=== PATIENT | female | born 1975 | race Hispanic/Latino ===

== ENCOUNTER 2017-08-01 00:42 | Emergency (ER) | payer BC ==
[2017-08-01 01:17] LABS: #Eosinphils 0.1 thou/uL (0.0-0.7); #Lymphocytes 2.2 thou/uL (1.20-3.40); #Monocytes 1.4 thou/uL (0.11-0.59); #Neutrophils 11.7 thou/uL (1.40-6.50); %Basophils 0.3 % (0.0-1.0); %Eosinophils 0.6 % (0.0-10.0); %Monocytes 9.1 % (0.0-10.0); Hemoglobin 15.8 g/dL (12.0-16.0); Mean Corpuscular HGB CONC 33.9 g/dL (32.0-36.0); Mean Corpuscular Hemoglobin 31.2 pg (27.0-31.0); Mean Corpuscular Volume 92.1 fl (81.0-99.0); Mean Platelet Volume 7.6 fL (7.4-10.4); Platelet Count 187 thou/uL (130-400); RBC Distribution Width 14.1 % (11.5-14.5); Red Blood Cell (RBC) Count 5.06 mill/uL (4.20-5.40); White Blood Cell (WBC) Count 15.4 thou/uL (4.8-10.8)
[2017-08-01 01:40] LABS: ALT (SGPT) 33 U/L (8-55); Alkaline Phosphatase 95 U/L (40-150); Anion Gap 16 mmol/L (10-20); BUN (Urea Nitrogen) 15 mg/dL (7.0-18.7); Bilirubin, Total 0.5 mg/dL (0.2-1.2); Calc. Creatinine Clearance 0 mL/min (70-130); Calcium 10.3 mg/dL (7.8-10.44); Carbon Dioxide 24 mmol/L (22-29); Chloride 101 mmol/L (98-107); Estimated GFR-MDRD 77; Globulin 3.6 g/dL (2.4-3.5); Glucose 143 mg/dL (70-105); Potassium 4.2 mmol/L (3.5-5.1); Protein, Total 7.6 g/dL (6.0-8.3); Sodium 137 mmol/L (136-145)
[2017-08-01 01:46] LABS: CKMB 0.5 ng/mL (0-6.6)
[2017-08-01 02:14] LABS: AST (SGOT) 13 U/L (5-34)
[2017-08-01 02:21] LABS: Bilirubin Negative (Negative); Blood, Urine Moderate (Negative); Clarity CLOUDY (Clear); Glucose, Urine (Dipstick) Negative (Negative); Leukocyte Moderate (Negative); Nitrite Positive (Negative); Protein, Urine (Dipstick) 30 mg/dL (Neg-Trace); Specific Gravity, Urine 1.022 (1.002-1.036); pH, Urine 6.5 (5.0-9.0)
[2017-08-01 02:23] LABS: Bacteria/HPF 4+ HPF (None Seen); Hyaline Casts/LPF 7-10 HYALINE CAST LPF (0-3 Hyaline); Squamous Epithelial 0-3 HPF (0-3)
[2017-08-01] MEDS ORDERED: Ibuprofen 800 MG TAB ONE (03:05)
--- NOTE | 2017-08-01 08:09 | RAD ---
2 VIEW CHEST SERIES: Date: 08/01/17 INDICATION: Chest pain. FINDINGS: There is no consolidation, effusion, or pneumothorax. Cardiac silhouette is within normal limits of s ize. No acute osseous findings are seen. Metallic clips overlying the right axilla and right upper ab domen. IMPRESSION: No focal consolidation. POS: [facility]
== END 2017-08-01 03:13 | disposition home or self-care (01) ==
LOC: ERS 00:42
DX: F41.9 Anxiety disorder, unspecified (principal); N39.0 Urinary tract infection, site not specified; I10 Essential (primary) hypertension; Z87.891 Personal history of nicotine dependence; Z79.899 Other long term (current) drug therapy
CPT/HCPCS: 36415; 71046; 80053; 81003; 81015; 82553; 84484; 85025; 93005

== ENCOUNTER 2018-02-28 15:36 | Outpatient (CLI) | payer BC | END 2018-02-28 15:37 | disposition home or self-care (01) | LOC: BICMAMMO 15:36 | PROVIDERS: ATTEND Internal Medicine | DX: Z12.31 Encounter for screening mammogram for malignant neoplasm of breast (principal) | CPT/HCPCS: 77063; 77067 ==

== ENCOUNTER 2018-08-09 08:18 | Emergency (ER) | payer BC ==
[2018-08-09 09:09] LABS: #Eosinphils 0.1 thou/uL (0.0-0.7); #Lymphocytes 1.2 thou/uL (1.20-3.40); #Monocytes 0.6 thou/uL (0.11-0.59); #Neutrophils 8.5 thou/uL (1.40-6.50); %Basophils 0.3 % (0.0-1.0); %Eosinophils 0.8 % (0.0-10.0); %Lymphocytes 11.5 % (21.0-51.0); %Monocytes 5.6 % (0.0-10.0); %Neutrophils 81.8 % (42.0-75.0); Hemoglobin 15.9 g/dL (12.0-16.0); Mean Corpuscular HGB CONC 32.9 g/dL (32.0-36.0); Mean Corpuscular Volume 94.2 fL (78.0-98.0); Mean Platelet Volume 8.6 fL (7.4-10.4); Platelet Count 168 thou/uL (130-400); Red Blood Cell (RBC) Count 5.12 mill/uL (4.20-5.40); White Blood Cell (WBC) Count 10.4 thou/uL (4.8-10.8)
[2018-08-09] MEDS ORDERED: Iopamidol 370 76% 100 ML VIAL ONE (09:29)
[2018-08-09 09:42] LABS: ALT (SGPT) 29 U/L (8-55); AST (SGOT) 29 U/L (5-34); Albumin 3.8 g/dL (3.5-5.0); Alkaline Phosphatase 97 U/L (40-150); Anion Gap 17 mmol/L (10-20); BUN (Urea Nitrogen) 17 mg/dL (7.0-18.7); Bilirubin, Total 0.4 mg/dL (0.2-1.2); Calc. Creatinine Clearance 0 mL/min (70-130); Calcium 9.2 mg/dL (7.8-10.44); Carbon Dioxide 20 mmol/L (22-29); Chloride 104 mmol/L (98-107); Estimated GFR-MDRD 83; Globulin 3.2 g/dL (2.4-3.5); Glucose 188 mg/dL (70-105); Potassium 5.1 mmol/L (3.5-5.1); Sodium 136 mmol/L (136-145)
--- NOTE | 2018-08-09 09:50 | RAD ---
TWO VIEWS CHEST: DATE: 08/09/2018. PROVIDED CLINICAL HISTORY: Chest pain. FINDINGS: Comparison 08/01/2017. Cardiac and mediastinal silhouette is within normal limits. Left subclavian ca rdiac pacing device is now present with lead tips overlying expected locations of RA, RV, and coronar y sinus. The frontal view is suboptimally exposed. Given this limitation, no focal consolidation, p leural fluid, or pneumothorax apparent. IMPRESSION: No definite evidence for an acute cardiopulmonary process with limitations as above. POS: [facility]
[2018-08-09] MEDS ORDERED: Ondansetron PF 4 MG/2 ML Vial ONE (10:02)
[2018-08-09 10:47] LABS: Bilirubin Small (Negative); Blood, Urine Trace (Negative); Clarity CLEAR (Clear); Glucose, Urine (Dipstick) 250 mg/dL (Negative); Leukocyte Small (Negative); Nitrite Negative (Negative); Protein, Urine (Dipstick) 30 mg/dL (Neg-Trace); Specific Gravity, Urine 1.042 (1.002-1.036); pH, Urine 5.5 (5.0-9.0)
[2018-08-09 10:50] LABS: Bacteria/HPF None Seen HPF (None Seen); Hyaline Casts/LPF 4-6 HYALINE CAST LPF (0-3 Hyaline)
--- NOTE | 2018-08-09 10:54 | CT ---
CT PULMONARY ANGIOGRAM WITH IV CONTRAST AND 3D POSTPROCESSING: HISTORY: Dyspnea. FINDINGS: There is good contrast opacification of the pulmonary arterial vasculature without filling defects to suggest pulmonary embolism. The thoracic aorta is well opacified without aneurysm or dissection. N o pleural or pericardial effusions are seen. There are tiny tracheal diverticula arising at the 6-7 o'clock positions of the upper thoracic trachea. No pneumothoraces, focal areas of consolidation, pu lmonary nodules, or lung masses are identified. No acute osseous abnormalities are seen. There are mild degenerative changes in the spine. Upper abdominal tomograms demonstrate changes of cholecystec adrian and fatty infiltration of the liver. IMPRESSION: No CT evidence of pulmonary embolism. POS: [facility]
[2018-08-10 10:04] LABS: Hemoglobin A1c 8.5 % (4.0-6.0)
--- NOTE | 2018-08-12 12:03 | EKG ---
Test Reason : Blood Pressure : / mmHG Vent. Rate : 118 BPM Atrial Rate : 119 BPM P-R Int : 122 ms QRS Dur : 120 ms QT Int : 384 ms P-R-T Axes : 027 016 077 degrees QTc Int : 538 ms Electronic ventricular pacemaker Confirmed by SHARLA JACKSON DO ([id number]), newspaper editor managing TREMAINE CHAO ([id number]) on 08/12/2018 12:02:46 PM Referred By: Confirmed By:SHARLA JACKSON DO
== END 2018-08-09 11:41 | disposition home or self-care (01) ==
LOC: ERS 08:18
DX: I11.0 Hypertensive heart disease with heart failure (principal); I50.9 Heart failure, unspecified; E11.9 Type 2 diabetes mellitus without complications; Z79.899 Other long term (current) drug therapy; Z79.84 Long term (current) use of oral hypoglycemic drugs
CPT/HCPCS: 71046; 71275; 80053; 81003; 81015; 83036; 84484; 85025; 85379; 87086; 93005; 96374; J2405; Q9967

== ENCOUNTER 2018-09-30 17:42 | Inpatient (IN) | payer BC ==
[~2018-09-30 17:42] MED LIST: Glycopyrrolate 0.2 MG/ML 5 ML SYRINGE ONE; Lidocaine 1% PF 5 ML VIAL ONE; Ondansetron PF 4 MG/2 ML Vial ONE; PHENYLEPHRINE-NS 100 MCG/ML 10 ML SYRINGE ONE; PROPOFOL 200 MG/20 ML VIAL ONE; Rocuronium Bromide 10 MG/ML (10ML VIAL) ONE; Succinylcholine Chloride 20 MG/ML 10 ml SYRINGE FS ONE
[2018-09-30 19:30] LABS: Bilirubin Negative (Negative); Blood, Urine Large (Negative); Clarity TURBID (Clear); Glucose, Urine (Dipstick) >=1000 mg/dL (Negative); Leukocyte Moderate (Negative); Nitrite Positive (Negative); Protein, Urine (Dipstick) 100 mg/dL (Neg-Trace); Specific Gravity, Urine 1.028 (1.002-1.036); Urobilinogen 0.2 mg/dL (0.2-1.0)
[2018-09-30 19:31] LABS: Pregnancy Test - Urine (BHCG) Negative (Negative); Pregu Control Background? CLEAR/WHITE (CLR/WHITE); Pregu Control Bar Appear? YES (CONTROL BAR); Specific Gravity 1.028 (1.002-1.036)
[2018-09-30 19:33] LABS: Bacteria/HPF 4+ HPF (None Seen); Squamous Epithelial 21-50 HPF (0-3)
[2018-09-30 19:38] LABS: Pathc Cast-AUWi Flag 3.37 (0-2.49); Yeast-AUWi Flag 717.6 (0-25.0)
[2018-09-30 19:40] LABS: Hyaline Casts/LPF NONE SEEN LPF (0-3 Hyaline); Other Casts/LPF None Seen LPF (0-3 Hyaline); Yeast-All Forms None Seen HPF (None Seen)
[2018-09-30] MEDS ORDERED: Acetaminophen 500 MG TAB ONE (20:20)
[2018-09-30 20:48] LABS: Band 19 % (5-11); Eosinophils 2 % (0-10); Hemoglobin 15.1 g/dL (12.0-16.0); Lymphocytes 11 % (21-51); MDiff Complete? YES; Mean Corpuscular HGB CONC 33.4 g/dL (32.0-36.0); Mean Corpuscular Hemoglobin 32.2 pg (27.0-31.0); Mean Corpuscular Volume 96.2 fL (78.0-98.0); Mean Platelet Volume 8.6 fL (7.4-10.4); Monocytes 2 % (0-10); Neutrophil 66 % (42-75); Platelet Count 141 thou/uL (130-400); Platelet Morphology Comment Appears Adequate; RBC Distribution Width 13.5 % (11.5-14.5); Red Blood Cell (RBC) Count 4.68 mill/uL (4.20-5.40); White Blood Cell (WBC) Count 18.3 thou/uL (4.8-10.8)
[2018-09-30 20:59] LABS: ALT (SGPT) 26 U/L (8-55); AST (SGOT) 21 U/L (5-34); Albumin 3.8 g/dL (3.5-5.0); Alkaline Phosphatase 120 U/L (40-150); Anion Gap 18 mmol/L (10-20); BUN (Urea Nitrogen) 12 mg/dL (7.0-18.7); Bilirubin, Total 0.6 mg/dL (0.2-1.2); Calc. Creatinine Clearance 0 mL/min (70-130); Calcium 9.9 mg/dL (7.8-10.44); Carbon Dioxide 22 mmol/L (22-29); Chloride 99 mmol/L (98-107); Estimated GFR-MDRD 50; Globulin 3.3 g/dL (2.4-3.5); Glucose 522 mg/dL (70-105); Protein, Total 7.1 g/dL (6.0-8.3)
[2018-09-30 21:01] LABS: Sodium 135 mmol/L (136-145)
[2018-09-30] MEDS ORDERED: cefTRIAXone\\ROCEPHIN 1 GM VIAL ONE ×2 (21:22→22:40)
[2018-09-30] MEDS ORDERED: Sodium Chloride 0.9% 100 ML ONE ×2 (21:22→22:40)
[2018-09-30] MEDS ORDERED: Insulin Regular 300 UNITS/3 ML VIAL ONE (21:28)
--- NOTE | 2018-09-30 21:35 | CT ---
CT of abdomen and pelvis: 09/30/2018 COMPARISON: 11/13/2016 HISTORY: Dysuria, back pain TECHNIQUE: Axial CT imaging at 5 mm intervals from lung bases through pubic symphysis without contras t. Coronal reformatted imaging obtained. FINDINGS: Lack of contrast media limits assessment of the viscera, bowel, vascular structures, and fo r lymphadenopathy. The visualized lung bases are unremarkable. Transvenous AICD present. Clips in the gallbladder fossa consistent with prior cholecystectomy noted. No free intraperitoneal air. The hepatic parenchyma is diffusely hypodense, evidence of steatosis. The spleen, pancreas, and adren al glands are unremarkable. Subcentimeter nonobstructing stone noted in the midpole and lower pole left kidney, measuring approxi mately 4 and 2 mm respectively. No evidence for obstructive uropathy is seen on the left. There is an obstructing proximal right ureteral stone measuring 7-8 mm in craniocaudal dimension with irregular anterior margins. There is mild associated right hydronephrosis. There is diverticulosis of the descending colon with no evidence for diverticulitis. Appendix appears unremarkable. The osseous structures demonstrate no lytic or blastic lesions. IMPRESSION: Obstructing proximal right ureteral calculus. Nonobstructing intrarenal calculi noted on the left.
[2018-09-30] MEDS ORDERED: Fentanyl 100 MCG/2 ML VIAL ONE (22:37)
[2018-09-30] MEDS ORDERED: Ketorolac Tromethamine 30 MG/ML VIAL ONE (22:40)
[2018-09-30] MEDS ORDERED: Iothalamate Meglumine 60% 50 ML VIAL FS ONE (22:45)
[2018-09-30] MEDS ORDERED: Ketamine 50 MG/ML (10ML VIAL) ONE (22:57)
--- NOTE | 2018-09-30 23:57 | RAD ---
Retrograde pyelogram 09/30/2018 COMPARISON: None HISTORY: Stent placement, pain, proximal right ureteral stone FINDINGS: Images demonstrate placement of a double-J ureteral stone on the right. The calculus noted within the proximal right ureter on recent CT is faintly visualized on the first image and is not seen on the subsequent images. IMPRESSION: Retrograde pyelogram as above.
[2018-10-01] MEDS ORDERED: SUGAMMADEX SODIUM 200 MG/2 ML VIAL ONE (00:05)
--- NOTE | 2018-10-01 00:17 | CON ---
DATE OF CONSULTATION: 09/30/2018 REASON FOR CONSULTATION: Right flank pain, urinary tract infection. HISTORY OF PRESENT ILLNESS: Ms. Helms is a 43-year-old female with a history of kidney stones in the past. She has had prior intervention by Dr. Meadows. She presents now with acute onset of right-sided flank pain. She also has had dysuria. In the emergency room, she was evaluated and noted to have an elevated white count of 18.3. Urinalysis demonstrated 4+ bacteria with too numerous to count white blood cells. In the emergency room, she was also noted to have a blood sugar of 522. CT scan demonstrates a proximal right ureteral stone with proximal hydroureter. PAST MEDICAL HISTORY: Cardiac disease, status post defibrillator implantation; diabetes mellitus. PAST SURGICAL HISTORY: x3, cholecystectomy, hernia repair, ESWL. ALLERGIES: SULFA. MEDICATIONS AT HOME: Please see chart. REVIEW OF SYSTEMS: RESPIRATORY: No shortness of breath. CARDIOVASCULAR: Denies chest pain or palpitation, although she does have a defibrillator. GENITOURINARY: Please see history of present illness. NEUROLOGIC: Denies any stroke symptoms. GASTROINTESTINAL: Denies chronic constipation or diarrhea. PHYSICAL EXAMINATION: GENERAL: She is awake. She is alert. She is in no distress at this time. VITAL SIGNS: Temperature 98.3, blood pressure 125/83, pulse 78, respiratory rate 20. HEENT: Normocephalic, atraumatic. NECK: Supple. No masses. CHEST: Clear to auscultation. CARDIOVASCULAR: Regular rate and rhythm. ABDOMEN: Soft, nontender. No palpable masses. Liver and spleen not palpable. No abdominal tenderness. LABORATORY DATA: Creatinine 1.2, glucose 522, potassium 4.0. White count 18.3, hemoglobin 15.1, hematocrit 45.1. CT scan; 7 to 8 mm proximal right ureteral stone. IMPRESSION: Ms. Helms is a 43-year-old female with a prior history of stone disease. She now has an upper ureteral stone with evidence of obstruction. In addition, she has findings consistent with urinary tract infection that included a urinalysis [place] [id number]. I have recommended cystoscopy with ureteral stent placement. She is on IV antibiotics and urine culture has been sent. The procedure, potential limitation, alternatives, and complications have been discussed with her. She does wish to proceed. RECOMMENDATIONS: Cystoscopy, right ureteral stent placement. Job ID: [id number]
[2018-10-01] MEDS ORDERED: Sodium Chloride 0.9% 1,000 ML IV SCH (00:33)
[2018-10-01] MEDS: HYDROcodone/Acetaminophen 7.5/325 mg Tablet PO PRN ×3 (01:33→17:28)
--- NOTE | 2018-10-01 02:12 | OP ---
DATE OF PROCEDURE: 10/01/2018 PREOPERATIVE DIAGNOSES: Right ureteral stone and urinary tract infection. POSTOPERATIVE DIAGNOSES: Right ureteral stone and urinary tract infection. PROCEDURES PERFORMED: Cystoscopy, right ureteral stent placement, and retrograde pyelogram. ANESTHESIA: General. INDICATIONS: Ms. Sharonda Helms is a 43-year-old female with a history of stone disease in the past. She now has right-sided flank pain and urine consistent with urinary tract infection. Right ureteral stone noted on CT scan with evidence of obstruction. She presents to the operating room for cystoscopy and stent placement. DESCRIPTION OF PROCEDURE: The patient was given general anesthesia and IV antibiotics. She was sterilely prepped and draped in the lithotomy position. Cystoscope was passed into the bladder. Bladder was examined in its entirety. There were no mucosal lesions seen. She does have a large cystocele. Right ureteral orifice was intubated with a floppy tip guidewire, which was passed cephalad under fluoroscopic control. A Pollack catheter was passed over the guidewire, and a retrograde pyelogram was performed demonstrating the renal collecting system. A Glidewire was passed through the Pollack and then, a 4.8 x 24 double-J stent was coiled in the right renal pelvis and in the bladder as determined fluoroscopically and cystoscopically. The string was cut. It should be noted that the stone was not easily seen on the fluoroscopic imaging. The bladder was drained, and the cystoscope was removed. The patient was transferred from the operating room to recovery room in stable condition. COMPLICATION: None. ESTIMATED BLOOD LOSS: Minimal. Job ID: [id number]
[2018-10-01] MEDS ORDERED: Dextrose 50% Abboject 50 ML SYRINGE SLOW IVP PRN (02:55)
[2018-10-01] MEDS ORDERED: Dextrose 5% in Water 1,000 ML IV PRN (02:55)
[2018-10-01] MEDS ORDERED: Ondansetron ODT 4 MG TAB PO PRN (03:02)
[2018-10-01] MEDS ORDERED: Vancomycin HCl 1.5 GM in Sodium Chloride 0.9% 250 ML 300 ML IVPB SCH (03:30)
[2018-10-01 04:00] LABS: ALT (SGPT) 25 U/L (8-55); AST (SGOT) 19 U/L (5-34); Albumin 3.4 g/dL (3.5-5.0); Alkaline Phosphatase 88 U/L (40-150); Anion Gap 16 mmol/L (10-20); BUN (Urea Nitrogen) 12 mg/dL (7.0-18.7); Bilirubin, Total 0.5 mg/dL (0.2-1.2); CK (CPK) 17 U/L (29-168); Calc. Creatinine Clearance 109 mL/min (70-130); Carbon Dioxide 23 mmol/L (22-29); Chloride 104 mmol/L (98-107); Estimated GFR-MDRD 78; Globulin 2.9 g/dL (2.4-3.5); Glucose 348 mg/dL (70-105); Potassium 3.8 mmol/L (3.5-5.1); Protein, Total 6.3 g/dL (6.0-8.3); Sodium 139 mmol/L (136-145)
[2018-10-01] MEDS ORDERED: Vancomycin HCl 1.25 GM in Sodium Chloride 0.9% 250 ML 250 ML IVPB SCH (04:00)
[2018-10-01 04:02] LABS: Band 14 % (5-11); Eosinophils 1 % (0-10); Hemoglobin 13.6 g/dL (12.0-16.0); Lymphocytes 3 % (21-51); MDiff Complete? YES; Mean Corpuscular HGB CONC 32.9 g/dL (32.0-36.0); Mean Corpuscular Hemoglobin 31.7 pg (27.0-31.0); Mean Corpuscular Volume 96.3 fL (78.0-98.0); Mean Platelet Volume 8.3 fL (7.4-10.4); Monocytes 7 % (0-10); Neutrophil 75 % (42-75); Platelet Count 104 thou/uL (130-400); Platelet Morphology Comment Appears Decreased; RBC Distribution Width 13.6 % (11.5-14.5); Red Blood Cell (RBC) Count 4.29 mill/uL (4.20-5.40); White Blood Cell (WBC) Count 14.6 thou/uL (4.8-10.8)
[2018-10-01] MEDS ORDERED: Calcium Carbonate 500 MG ChewTAB PO PRN (04:11)
[2018-10-01] MEDS: HumaLOG 300 UNITS/3 ML VIAL SC PRN ×5 (04:15→20:37)
[2018-10-01] MEDS: Acetaminophen 325 MG TAB PO PRN (04:18)
--- NOTE | 2018-10-01 04:43 | HP ---
This is RUBENS Patterson dictating a report for Elaina Saez MD. CHIEF COMPLAINT: UTI and back pain. HISTORY OF PRESENT ILLNESS: Mrs. Helms is a very pleasant 43-year-old woman, who has a known history of kidney stone and recurrent urinary tract infections, who presented to the emergency department with complaints of UTI. The patient states she has noticed dysuria and urinary frequency for the last 3 weeks that progressively worsened. Approximately one week ago, she began to experience vaginal itching. The patient states these are similar symptoms that occur when she has issues with her kidney stones. She has had four kidney stones removed in the past requiring admission. The last one required a stent placement. However, the stent became dislodged shortly after the procedure. It came out in her urine. The patient was seen in the ED, underwent laboratory studies that were notable for leukocytosis with an elevated white count of 18. Creatinine slightly elevated 1.20; GFR 50, decreased from baseline of 83. Urinalysis was done and leukocyte esterase was noted in the urine as well as greater than 1000 glucose, negative for ketones, 100 of protein, positive nitrites, 7 to 10 red blood cells, greater than 50 white blood cells, and 4+bacteria. Patient states she was to be discharged on antibiotics in anticipation of she likely had a stone as she has experienced similar symptoms in the past. The patient was therefore taken for a CT of the abdomen and pelvis and noted to have an obstructing proximal right ureteral calculus with nonobstructing intrarenal calculi on the left side. The obstructing stone measured 7 to 8 mm with some mild associated right hydronephrosis. The patient was given ceftriaxone while in the ED. Vancomycin and gentamicin also ordered, but not yet given. The patient is taken for procedure by Dr. York. She underwent a cystoscopy with right ureteral stent placement and retrograde pyelogram. Patient is now back in the room following the procedure. States she is feeling well with minimal discomfort. Denies any complaints at present. Denies having any nausea or vomiting. No chest pain, palpitations, or shortness of breath. No headaches or dizziness. Has urinated and noted some hematuria but no dysuria. All other review of systems negative. PAST MEDICAL HISTORY: 1. Diabetes mellitus. 2. Cardiac disease, status post defibrillator. 3. Hypertension. PAST SURGICAL HISTORY: 1. x3. 2. Cholecystectomy. 3. Hernia repair. 4. ESWL. 5. Right-sided ureteral stent placement. SOCIAL HISTORY: The patient denies any alcohol use, drug use, or tobacco use. ALLERGIES: SULFA CAUSES RASH. CURRENT MEDICATIONS: 1. Carvedilol. 2. Lisinopril. 3. Metformin. 4. Spironolactone. 5. Magnesium. 6. . 7. Macrobid. 8. Xanax. 9. . 10. Tradjenta. 11. Lumigan. 12. Zolpidem. 13. Cartia XT. PHYSICAL EXAMINATION: GENERAL: Patient is obese, well developed, in no acute distress. VITAL SIGNS: Temperature 98.4, pulse 74, respirations 16, O2 saturation 96% on room air, and blood pressure 131/83. HEENT: Normocephalic and atraumatic. Pupils are equal, round, and reactive to light. Sclerae without icterus. Oropharynx is clear. NECK: Supple. Full range of motion. LUNGS: Clear to auscultation bilaterally. CARDIAC: Regular rate and rhythm. ABDOMEN: Soft, nondistended, and obese. Mild discomfort with palpation on the right side. No guarding or rigidity. EXTREMITIES: No lower leg edema or swelling. Mechanical SCDs in place. SKIN: Without rash or jaundice. NEUROLOGIC: Alert and oriented x3. No neuro deficits. LABORATORY DATA: Imaging as mentioned above in HPI. White blood count 18.3, hematocrit 45.1, and hemoglobin 15.1. Sodium 135, potassium 4.0, chloride 99, carbon dioxide 22, anion gap 18, BUN 12, creatinine 1.20, GFR 50, glucose 522, calcium 9.9, total bilirubin 0.6, AST 21, ALT 26, alkaline phosphatase 120, serum protein 7.1, and albumin 3.8. Urinalysis as mentioned above. IMPRESSION AND PLAN: Ms. Hlems is a very pleasant 43-year-old woman who is being admitted for management of the following. 1. Obstructing right renal calculi. The patient is status post right ureteral stent placement done by Dr. York. Currently on IV fluids. Denies any significant pain at present. Has noted some mild hematuria to be expected following the procedure. She is feeling well overall. 2. Pyelonephritis. Patient was started on IV antibiotics including Rocephin. Gentamicin and vancomycin were also ordered while in the ED. However, it appears these have not yet been given. Her white count was elevated at 18.3. No lactate available. Therefore, we will obtain lactate and other morning labs are due. We will also obtain CK. We will continue IV antibiotics. 3. Diabetes mellitus. We will resume home medications if renal function okay with these morning labs. In the meantime, we will initiate insulin sliding scale. Monitor glucose. Ketones added on with the morning labs. 4. Hypertension. Monitor blood pressure. Resume home medications. 5. Cardiac disease. Patient reports having a defibrillator placed for "weak heart." She last underwent an echocardiogram in 2017 with no ejection fraction calculated. She was noted to have hypokinetic inferior wall with mildly reduced LV function and mild mitral regurgitation as well as mild dilated left atrium. She is on Coreg which we will resume. 6. Gastrointestinal prophylaxis. 7. Deep venous thrombosis prophylaxis with mechanical SCDs. Patient has also been placed on enoxaparin. 8. Full code status. Surrogate decision maker is her , Bola Helms. Patient's case to be discussed with Dr. Saez for further recommendations. Job ID: [id number]
[2018-10-01] MEDS ORDERED: Nitroglycerin 2% Ointment 1 INCH/1 GM Packet ONE (05:29)
[2018-10-01] MEDS ORDERED: Furosemide 40 MG/4 ML VIAL ONE (05:33)
[2018-10-01] MEDS ORDERED: Labetalol HCl 100 MG/20 ML VIAL ONE (05:36)
[2018-10-01] MEDS ORDERED: cloNIDine 0.1 MG TAB PO PRN (05:45)
[2018-10-01] MEDS ORDERED: Labetalol HCl 100 MG/20 ML VIAL SLOW IVP PRN (05:45)
[2018-10-01] MEDS ORDERED: Nitroglycerin 2% Ointment 1 INCH/1 GM Packet TOP SCH (05:45)
[2018-10-01] MEDS ORDERED: Furosemide 20 MG/2 ML VIAL SLOW IVP SCH (06:00)
[2018-10-01 06:10] LABS: Phosphorus 3.4 mg/dL (2.3-4.7)
[2018-10-01 06:17] LABS: ALT (SGPT) 31 U/L (8-55); AST (SGOT) 25 U/L (5-34); Albumin 3.8 g/dL (3.5-5.0); Alkaline Phosphatase 105 U/L (40-150); Anion Gap 19 mmol/L (10-20); BUN (Urea Nitrogen) 12 mg/dL (7.0-18.7); Bilirubin, Total 0.6 mg/dL (0.2-1.2); Calc. Creatinine Clearance 104 mL/min (70-130); Calcium 9.4 mg/dL (7.8-10.44); Carbon Dioxide 19 mmol/L (22-29); Chloride 105 mmol/L (98-107); Estimated GFR-MDRD 74; Globulin 2.9 g/dL (2.4-3.5); Glucose 326 mg/dL (70-105); Magnesium 1.4 mg/dL (1.6-2.6); Potassium 3.9 mmol/L (3.5-5.1); Protein, Total 6.7 g/dL (6.0-8.3); Sodium 139 mmol/L (136-145)
[2018-10-01 06:21] LABS: Band 38 % (5-11); Elliptocytes SLIGHT = 2-5 cells (100X) (0-1/hpf); Hemoglobin 15.1 g/dL (12.0-16.0); Hypochromia SLIGHT = 6-15 cells (100X) (0-5/hpf); Lymphocytes 12 % (21-51); MDiff Complete? YES; Mean Corpuscular HGB CONC 32.9 g/dL (32.0-36.0); Mean Corpuscular Hemoglobin 31.7 pg (27.0-31.0); Mean Corpuscular Volume 96.3 fL (78.0-98.0); Mean Platelet Volume 8.8 fL (7.4-10.4); Metamyelocyte 1 % (0-0); Monocytes 1 % (0-10); Neutrophil 45 % (42-75); Platelet Count 111 thou/uL (130-400); Platelet Morphology Comment Appears Decreased; Polychromasia SLIGHT = 2-3 cells (100X) (0-2/hpf); RBC Distribution Width 13.6 % (11.5-14.5); Reactive Lymphocytes 3 % (0-10); Red Blood Cell (RBC) Count 4.76 mill/uL (4.20-5.40); White Blood Cell (WBC) Count 7.3 thou/uL (4.8-10.8)
[2018-10-01] MEDS: Sodium Chloride 0.9% 1,000 ML IV SCH ×2 (06:42→23:17)
[2018-10-01 07:56] LABS: Lactic Acid 3.9 mmol/L (0.5-2.2)
--- NOTE | 2018-10-01 09:26 | RAD ---
AP VIEW CHEST: HISTORY: Respiratory distress. FINDINGS: AP view chest is obtained on 10/01/2018. Comparison is made to a previous exam from 08/09/2018. A dual-lead intracardiac defibrillator is seen. Coronary sinus lead is also in place. Mild pulmonary vascular congestion seen. No evidence of effusions, pneumonia or pneumothorax seen. Right axillary surgical belkys in place. IMPRESSION: Mild pulmonary vascular congestion; otherwise, unremarkable AP view chest. Transcribed Date/Time: 10/01/2018 9:32 AM
[2018-10-01] MEDS: Carvedilol 25 MG TAB PO SCH ×2 (09:32→17:26)
[2018-10-01] MEDS: Enoxaparin Sodium 30 MG/0.3 ML SYRINGE SC SCH (09:32)
--- NOTE | 2018-10-01 10:58 | CON ---
DATE OF CONSULTATION: HISTORY OF PRESENT ILLNESS: This is a 43-year-old excessively obese female, who is 88 kg, presented to the ER with weakness, abdominal pain. She has known history of cardiomyopathy, has an AICD in place for about a year. 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 Her primary care doctor is Dr. France. She was admitted with a blood pressure of 119/71, respiratory rate 18, and temperature 98, saturations 97%. She was found to have back pain, UTI secondary to ureteral stone. Yesterday while she was being monitored, she became hypotensive and was transferred to the MICU, the reason for consult. This morning, she says she is feeling better, is still hypotensive. Denies any nausea, vomiting. Pain is somewhat better. She was started on broad-spectrum antibiotics, but appears so far, her cultures have been negative. PAST MEDICAL HISTORY: Diabetes, multiple ureteral calculi, E. coli bacteremia. PREVIOUS SURGERIES: Multiple stents placed previously, , cholecystectomy, AICD a year ago. MEDICATIONS: Chronic medications from home otherwise includes, 1. Diabetic medicine, metformin 1000 twice a day. 2. Spironolactone 25. 3. Entresto 1 twice a day. 4. Tradjenta 5. 5. Corlanor 5 mg twice a day. 6. Coreg twice a day. 7. Lipitor 10. ALLERGIES: SULFA. SOCIAL AND FAMILY HISTORY: Otherwise unremarkable. REVIEW OF SYSTEMS: A 10-point negative. PHYSICAL EXAMINATION: VITAL SIGNS: Blood pressure is 96/69, saturations are 100% room air, respiratory rate 18, pulse 80. CHEST: Decreased breath sounds. No wheezing. CARDIAC: Normal S1, S2. No gallops. ABDOMEN: No masses. LABORATORY DATA: White count 7000, H and H 15 and 45, platelet count is low 111. Lytes are normal. Glucose is elevated. She had an echo done recently, appears otherwise unremarkable. Abdomen and pelvis CT shows obstructive proximal right ureteral calculi. She is status post stent placed by Urology and a right ureteral stent placement. ASSESSMENT: 1. Urosepsis. 2. Cardiomyopathy. 3. Morbid obesity. 4. Sleep apnea. 5. Diabetes. 6. Hypotension. PLAN: It appears the patient is improved so far. We will continue broad-spectrum antibiotics and deescalate once we get cultures back. Continue supportive care, PT. She needs an outpatient sleep study. She may very well have sleep apnea. Pulmonary/Critical Care will follow while in the MICU. Job ID: [id number]
--- NOTE | 2018-10-01 16:55 | PRG ---
DATE OF SERVICE: 10/01/2018 SUBJECTIVE: She has abdominal discomfort with coughing. She has some mild discomfort with urination and some hematuria. Otherwise, no complaints at this time. OBJECTIVE: VITAL SIGNS: Temperature 97.5, blood pressure 110/77, pulse 88. ABDOMEN: Soft and nontender. No palpable masses. Liver and spleen not palpable. No abdominal tenderness noted. LABORATORY DATA: Most recent glucose 270. White count 7.3. Urine culture, E coli, sensitivity is pending. IMPRESSION: Ms. Helms is status post right ureteral stent placement on 09/30/2018. Urine culture is positive for Escherichia coli,t though sensitivities are not back at this time. Her blood sugar is improving and her white count has improved from 18 to 7.3. She will eventually require definitive management of the right ureteral stone. Her urologist is Dr. Meadows. I will notify him of her admission. recommendations, no new recommendations at this time. Job ID: [id number]
[2018-10-01] MEDS: cefTRIAXone\\ROCEPHIN 2 GM in Sodium Chloride 0.9% 100 ML IVPB SCH (20:35)
[2018-10-01] MEDS: Atorvastatin Calcium 10 MG TAB PO SCH (20:35)
[2018-10-02] MEDS: HYDROcodone/Acetaminophen 7.5/325 mg Tablet PO PRN ×3 (00:14→14:44)
[2018-10-02] MEDS: Acetaminophen 325 MG TAB PO PRN (03:41)
[2018-10-02] MEDS ORDERED: Vancomycin HCl 1.5 GM in Sodium Chloride 0.9% 250 ML 300 ML IVPB SCH (04:00)
[2018-10-02] MEDS ORDERED: Vancomycin HCl 1 GM in Premix Bag 1 BAG IVPB SCH (04:00)
[2018-10-02] MEDS: HumaLOG 300 UNITS/3 ML VIAL SC PRN ×4 (07:01→21:13)
--- NOTE | 2018-10-02 10:00 | PRG ---
DATE OF SERVICE: 10/02/2018 SUBJECTIVE: This morning, the patient is awake, alert, responsive, better. She has some nasal bleed, probably from dryness in the nose from the nasal O2. OBJECTIVE: VITAL SIGNS: Blood pressure 112/80, respiratory rate 18. CHEST: No wheezing or crackles. CARDIAC: Normal S1 and S2. No gallops. ABDOMEN: No masses. IMPRESSION: 1. Recurrent ureteral stones. 2. Escherichia coli sepsis, sensitive to present antibiotic, Rocephin. PLAN: Continue PT and supportive care. Follow while in the MICU. I see no reason to start vancomycin. We will follow. Job ID: [id number]
[2018-10-02] MEDS: Carvedilol 25 MG TAB PO SCH ×2 (10:11→16:47)
[2018-10-02] MEDS: Enoxaparin Sodium 30 MG/0.3 ML SYRINGE SC SCH (10:11)
[2018-10-02] MEDS: Sodium Chloride 0.9% 1,000 ML IV SCH (16:59)
--- NOTE | 2018-10-02 17:46 | PDOC.PN ---
- Subjective Encounter Start Date: 10/02/18 Encounter Start Time: 08:55 Subjective: breathing better, no sob now -: c/o abd pain worse with coughing -: no nausea or chest pain - Objective Resuscitation Status - Order Detail: 09/30/18 23:58 Resuscitation Status Routine Resuscitation Status: FULL: Full Resuscitation MAR Reviewed: Yes Vital Signs & Weight: Vital Signs (12 hours) Temp Pulse Ox 10/02/18 15:49 99.6 F 10/02/18 11:13 98.9 F 10/02/18 07:50 100 10/02/18 07:14 97.6 F Weight Weight 197 lb 5.019 oz Most Recent Monitor Data Heart Rate from ECG 103 NIBP 129/82 NIBP BP-Mean 97 Respiration from ECG 22 SpO2 100 I&O: 10/01/18 10/02/18 10/03/18 06:59 06:59 06:59 Intake Total 750 2185 Output Total 300 2175 Balance 450 10 Result Diagrams: 10/01/18 05:40 10/01/18 05:40 Additional Labs: Accuchecks 10/02/18 10/02/18 10/01/18 10:56 06:12 20:13 POC Glucose 284 H 250 H 385 H Phys Exam - Physical Examination HEENT: PERRLA, moist MMs Neck: no JVD, supple Respiratory: no wheezing rhonchi+, basal rales+ Cardiovascular: RRR, no significant murmur Gastrointestinal: soft, no distention, positive bowel sounds Musculoskeletal: no edema, pulses present Neurological: non-focal, moves all 4 limbs Psychiatric: normal affect, A&O x 3 Dx/Plan (1) Obstructive uropathy Code(s): N13.9 - OBSTRUCTIVE AND REFLUX UROPATHY, UNSPECIFIED Status: Acute (2) Right ureteral stone Code(s): N20.1 - CALCULUS OF URETER Status: Acute Comment: s/p stent to proximal ureter right (3) Pyelonephritis Code(s): N12 - TUBULO-INTERSTITIAL NEPHRITIS, NOT SPCF ACUTE OR CHRONIC Status: Acute (4) Sepsis Code(s): A41.9 - SEPSIS, UNSPECIFIED ORGANISM Status: Acute Qualifiers: Sepsis type: Escherichia coli Qualified Code(s): A41.51 - Sepsis due to Escherichia coli [E. coli] (5) DM type 2 (diabetes mellitus, type 2) Status: Chronic Qualifiers: Diabetes mellitus group home insulin use: without buttermaker continuous churn use Diabetes mellitus complication status: with hyperglycemia Qualified Code(s): E11.65 - Type 2 diabetes mellitus with hyperglycemia (6) Dyslipidemia Code(s): E78.5 - HYPERLIPIDEMIA, UNSPECIFIED Status: Chronic (7) h/o defibrillator Status: Chronic (8) HTN (hypertension) Code(s): I10 - ESSENTIAL (PRIMARY) HYPERTENSION Status: Chronic Qualifiers: Hypertension type: essential hypertension Qualified Code(s): I10 - Essential (primary) hypertension (9) Morbid obesity with BMI of 45.0-49.9, adult Code(s): E66.01 - MORBID (SEVERE) OBESITY DUE TO EXCESS CALORIES; Z68.42 - BODY MASS INDEX (BMI) 45.0-49.9, ADULT Status: Chronic (10) Acute respiratory failure with hypoxia Code(s): J96.01 - ACUTE RESPIRATORY FAILURE WITH HYPOXIA Status: Resolved Comment: multifactorial - Plan hemostable now, may tx to tele -: on ceftriaxone, ecoli in cultures -: add lantus and home dose metformin -: current ef is normal, will hold off entresto, ivabradin and spironolactone -: may dc iv fluids if she is eating well, oob to chair and amb as tolerated * . Review of Systems - Medications/Allergies Allergies/Adverse Reactions: Allergies Allergy/AdvReac Type Severity Reaction Status Date / Time Sulfa (Sulfonamide Allergy Mild Rash Verified 10/01/18 01:16 Antibiotics) Medications: Current Medications Acetaminophen (Tylenol) 650 mg PO Q4H PRN PRN Reason: Headache/Fever/Mild Pain (1-3) Last Admin: 10/02/18 03:41 Dose: 650 mg Hydrocodone Bitart/Acetaminophen ([place] 7.5/325) 1 tab PO Q4H PRN PRN Reason: Moderate Pain (4-6) Last Admin: 10/02/18 14:44 Dose: 1 tab Alogliptin Benzoate (Alogliptin) 25 mg PO DAILY KILLIAN Atorvastatin Calcium (Lipitor) 10 mg PO HS KILLIAN Last Admin: 10/01/18 20:35 Dose: 10 mg Calcium Carbonate (Tums) 500 mg PO PRN PRN PRN Reason: Heartburn or Indigestion Carvedilol (Coreg) 25 mg PO BID-WM KILLIAN Last Admin: 10/02/18 16:47 Dose: 25 mg Clonidine (Catapres) 0.1 mg PO Q4H PRN PRN Reason: SBP>160 Dextrose/Water (Dextrose 50%) 25 gm SLOW IVP PRN PRN PRN Reason: Hypoglycemia Enoxaparin Sodium (Lovenox) 30 mg SC 0900 [facility] Last Admin: 10/02/18 10:11 Dose: 30 mg Glucagon (Glucagon) 1 mg IM PRN PRN PRN Reason: Hypoglycemia Dextrose/Water (D5w) 1,000 mls @ 0 mls/hr IV .Q0M PRN PRN Reason: Hypoglycemia Ceftriaxone Sodium 2 gm/ (Sodium Chloride) 100 mls @ 200 mls/hr IVPB Q24HR [facility] Last Admin: 10/01/18 20:35 Dose: 100 mls Sodium Chloride (Normal Saline 0.9%) 1,000 mls @ 55 mls/hr IV .[id number] [facility] Last Admin: 10/02/18 16:59 Dose: Not Given Insulin Glargine 10 units/ (Miscellaneous Medication) 0.1 mls @ 0 mls/hr SC BID [facility] Insulin Human Lispro (Humalog) 0 units SC .MILD SLIDING SCALE PRN PRN Reason: Mild Correctional Scale Last Admin: 10/02/18 16:52 Dose: 6 unit Insulin Human Lispro (Humalog) 0 units SC .BEDTIME SLIDING SC PRN PRN Reason: Bedtime Correctional Scale Last Admin: 10/01/18 20:37 Dose: 5 unit Ivabradine (Corlanor) 5 mg PO BID [facility] Labetalol HCl (Normodyne) 10 mg SLOW IVP Q4H PRN PRN Reason: SBP Greater Than 180 Magnesium Oxide (Magnesium Oxide) 500 mg PO [facility] Miscellaneous Medication (Pharmacy To Dose) 1 each IVPB PRN PRN PRN Reason: Pharmacy to dose Non-Formulary Medication (Bimatoprost [Lumigan]) 1 drop EA EYE [facility] Non-Formulary Medication (Metformin Hcl [Metformin Hcl]) [facility] Non-Form[facility] Med[facility] (Sacubitril/Valsartan [Entresto 97 Mg-103 Mg Tablet]) 1 tab PO BID [facility] Ondansetron HCl (Zofran Odt) 4 mg PO Q6H PRN PRN Reason: Nausea/Vomiting Sodium Chloride (Flush - Normal Saline) 10 ml IVF Q12HR PRN PRN Reason: Saline Flush Last Admin: 10/01/18 20:37 Dose: 10 ml Sodium Chloride (Flush - Normal Saline) 10 ml IVF PRN PRN PRN Reason: Saline Flush
[2018-10-02] MEDS: metFORMIN 500 MG TAB PO SCH (19:16)
[2018-10-02] MEDS: Latanoprost 0.005% Ophth Soln 2.5 ml Bottle EA EYE SCH (20:59)
[2018-10-02] MEDS: cefTRIAXone\\ROCEPHIN 2 GM in Sodium Chloride 0.9% 100 ML IVPB SCH (20:59)
[2018-10-02] MEDS ORDERED: Ivabradine 5 MG TAB PO SCH (21:00)
[2018-10-02] MEDS ORDERED: Non-Formulary Item 1 EACH (Sacubitril/Valsartan [Entresto 97 Mg-103 Mg Tablet] 1 TAB) PO SCH (21:00)
[2018-10-02] MEDS ORDERED: Non-Formulary Item 1 EACH (Bimatoprost [Lumigan] 1 DROP) EA EYE SCH (21:00)
[2018-10-02] MEDS: Insulin Glargine 10 UNITS in Pre-Filled Syringe 1 EACH SC SCH (21:01)
[2018-10-02] MEDS: Atorvastatin Calcium 10 MG TAB PO SCH (21:02)
[2018-10-02] MEDS: Magnesium Oxide 250 MG TAB PO SCH (21:02)
[2018-10-03] MEDS: HYDROcodone/Acetaminophen 7.5/325 mg Tablet PO PRN ×2 (02:22→15:40)
[2018-10-03] MEDS: HumaLOG 300 UNITS/3 ML VIAL SC PRN ×2 (05:36→20:12)
--- NOTE | 2018-10-03 09:13 | RAD ---
XR Chest 1 View Portable HISTORY: Shortness of breath COMPARISON: 10/01/2018 study FINDINGS: Heart size is borderline with a pacemaker present. The lungs are clear of infiltrates. No s igns of failure. IMPRESSION: Borderline to minimal cardiomegaly. No acute findings.
[2018-10-03] MEDS: Alogliptin 25 MG TAB PO SCH (09:29)
[2018-10-03] MEDS: metFORMIN 500 MG TAB PO SCH ×2 (09:29→15:40)
[2018-10-03] MEDS: Carvedilol 25 MG TAB PO SCH ×2 (09:30→15:40)
[2018-10-03] MEDS: Enoxaparin Sodium 30 MG/0.3 ML SYRINGE SC SCH (09:30)
[2018-10-03] MEDS: Insulin Glargine 10 UNITS in Pre-Filled Syringe 1 EACH SC SCH ×2 (09:39→20:12)
--- NOTE | 2018-10-03 09:48 | PRG ---
DATE OF SERVICE: 10/03/2018 SUBJECTIVE: Sharonda Helms is complaining of headache, complaining of difficulty swallowing. Denies shortness of breath. OBJECTIVE: VITAL SIGNS: Temperature is 97, pulse is 78, saturations are 100% on room air, blood pressure is slightly elevated 150/90. CHEST: No wheezing or crackles. CARDIAC: Normal S1 and S2. No gallops. ABDOMEN: No masses. IMPRESSION: Urinary tract infection, status post stent, ureteral stone, obesity, probably sleep apnea. PLAN: Continue diabetic medication, and baseline chest x-ray. Control blood pressure. Still she has a big left shift on the CBC. We will follow. Probably, needs to be switched over to oral antibiotics tomorrow. Job ID: [id number]
[2018-10-03 10:37] LABS: #Lymphocytes 0.9 thou/uL (1.20-3.40); #Monocytes 0.4 thou/uL (0.11-0.59); #Neutrophils 4.3 thou/uL (1.40-6.50); %Basophils 0.3 % (0.0-1.0); %Eosinophils 0.6 % (0.0-10.0); %Lymphocytes 15.9 % (21.0-51.0); %Monocytes 7.5 % (0.0-10.0); %Neutrophils 75.6 % (42.0-75.0); Hemoglobin 13.2 g/dL (12.0-16.0); Mean Corpuscular Hemoglobin 31.9 pg (27.0-31.0); Mean Corpuscular Volume 96.9 fL (78.0-98.0); Mean Platelet Volume 8.3 fL (7.4-10.4); Platelet Count 90 thou/uL (130-400); RBC Distribution Width 13.3 % (11.5-14.5); Red Blood Cell (RBC) Count 4.12 mill/uL (4.20-5.40); White Blood Cell (WBC) Count 5.7 thou/uL (4.8-10.8)
[2018-10-03 10:53] LABS: Anion Gap 13 mmol/L (10-20); BUN (Urea Nitrogen) 11 mg/dL (7.0-18.7); Calc. Creatinine Clearance 151 mL/min (70-130); Calcium 8.9 mg/dL (7.8-10.44); Carbon Dioxide 24 mmol/L (22-29); Chloride 103 mmol/L (98-107); Estimated GFR-MDRD Greater than 90; Glucose 314 mg/dL (70-105); Potassium 3.8 mmol/L (3.5-5.1); Sodium 136 mmol/L (136-145)
--- NOTE | 2018-10-03 16:10 | PDOC.PN ---
- Subjective Encounter Start Date: 10/03/18 Encounter Start Time: 12:40 Subjective: c/o headache, no sob -: abd pain has improved with very minimal pain this am - Objective Resuscitation Status - Order Detail: 09/30/18 23:58 Resuscitation Status Routine Resuscitation Status: FULL: Full Resuscitation MAR Reviewed: Yes Vital Signs & Weight: Vital Signs (12 hours) Temp Pulse Ox 10/03/18 15:22 98.2 F 10/03/18 11:16 98.5 F 10/03/18 08:15 100 10/03/18 07:14 97.0 F L Weight Weight 201 lb 11.567 oz Most Recent Monitor Data Heart Rate from ECG 98 NIBP 173/114 NIBP BP-Mean 133 Respiration from ECG 17 SpO2 100 I&O: 10/02/18 10/03/18 10/04/18 06:59 06:59 06:59 Intake Total 2185 1260 Output Total 2175 1400 Balance 10 -140 Result Diagrams: 10/03/18 10:19 10/03/18 10:19 Additional Labs: Accuchecks 10/03/18 10/03/18 10/02/18 10:28 05:02 21:09 POC Glucose 289 H 212 H 307 H 10/02/18 16:53 POC Glucose 359 H Phys Exam - Physical Examination HEENT: PERRLA, moist MMs Neck: no JVD, supple Respiratory: no wheezing, no rales Cardiovascular: RRR, no significant murmur Gastrointestinal: soft, non-tender, positive bowel sounds Musculoskeletal: no edema, pulses present Neurological: non-focal, moves all 4 limbs Psychiatric: normal affect, A&O x 3 Dx/Plan (1) Obstructive uropathy Code(s): N13.9 - OBSTRUCTIVE AND REFLUX UROPATHY, UNSPECIFIED Status: Acute (2) Right ureteral stone Code(s): N20.1 - CALCULUS OF URETER Status: Acute Comment: s/p stent to proximal ureter right (3) Pyelonephritis Code(s): N12 - TUBULO-INTERSTITIAL NEPHRITIS, NOT SPCF ACUTE OR CHRONIC Status: Acute (4) Sepsis Code(s): A41.9 - SEPSIS, UNSPECIFIED ORGANISM Status: Acute Qualifiers: Sepsis type: Escherichia coli Qualified Code(s): A41.51 - Sepsis due to Escherichia coli [E. coli] (5) DM type 2 (diabetes mellitus, type 2) Status: Chronic Qualifiers: Diabetes mellitus manager intermediate insulin use: without fpc use Diabetes mellitus complication status: with hyperglycemia Qualified Code(s): E11.65 - Type 2 diabetes mellitus with hyperglycemia (6) Dyslipidemia Code(s): E78.5 - HYPERLIPIDEMIA, UNSPECIFIED Status: Chronic (7) h/o defibrillator Status: Chronic (8) HTN (hypertension) Code(s): I10 - ESSENTIAL (PRIMARY) HYPERTENSION Status: Chronic Qualifiers: Hypertension type: essential hypertension Qualified Code(s): I10 - Essential (primary) hypertension (9) Morbid obesity with BMI of 45.0-49.9, adult Code(s): E66.01 - MORBID (SEVERE) OBESITY DUE TO EXCESS CALORIES; Z68.42 - BODY MASS INDEX (BMI) 45.0-49.9, ADULT Status: Chronic (10) Acute respiratory failure with hypoxia Code(s): J96.01 - ACUTE RESPIRATORY FAILURE WITH HYPOXIA Status: Resolved Comment: multifactorial - Plan hemostable -: is on ceftriaxone -: PT to mobilize as tolerated, has not amb so far -: tx to med floor -: home dm meds restarted from yesterday * . Her EF is normal now, not sure if she needs her heart failure meds, is not on them now. Has obesity hypovent with likely sleep apnea. Review of Systems - Medications/Allergies Allergies/Adverse Reactions: Allergies Allergy/AdvReac Type Severity Reaction Status Date / Time Sulfa (Sulfonamide Allergy Mild Rash Verified 10/01/18 01:16 Antibiotics) Medications: Current Medications Acetaminophen (Tylenol) 650 mg PO Q4H PRN PRN Reason: Headache/Fever/Mild Pain (1-3) Last Admin: 10/02/18 03:41 Dose: 650 mg Hydrocodone Bitart/Acetaminophen ([place] 7.5/325) 1 tab PO Q4H PRN PRN Reason: Moderate Pain (4-6) Last Admin: 10/03/18 15:40 Dose: 1 tab Alogliptin Benzoate (Alogliptin) 25 mg PO DAILY [facility] Last Admin: 10/03/18 09:29 Dose: 25 mg Atorvastatin Calcium (Lipitor) 10 mg PO HS [facility] Last Admin: 10/02/18 21:02 Dose: 10 mg Calcium Carbonate (Tums) 500 mg PO PRN PRN PRN Reason: Heartburn or Indigestion Carvedilol (Coreg) 25 mg PO BID-[facility] Last Admin: 10/03/18 15:40 Dose: 25 mg Clonidine (Catapres) 0.1 mg PO Q4H PRN PRN Reason: SBP>160 Dextrose/Water (Dextrose 50%) 25 gm SLOW IVP PRN PRN PRN Reason: Hypoglycemia Enoxaparin Sodium (Lovenox) 30 mg SC 0900 [facility] Last Admin: 10/03/18 09:30 Dose: 30 mg Glucagon (Glucagon) 1 mg IM PRN PRN PRN Reason: Hypoglycemia Dextrose/Water (D5w) 1,000 mls @ 0 mls/hr IV .Q0M PRN PRN Reason: Hypoglycemia Ceftriaxone Sodium 2 gm/ (Sodium Chloride) 100 mls @ 200 mls/hr IVPB Q24HR [facility] Last Admin: 10/02/18 20:59 Dose: 100 mls Sodium Chloride (Normal Saline 0.9%) 1,000 mls @ 55 mls/hr IV .[id number] [facility] Last Admin: 10/02/18 16:59 Dose: Not Given Insulin Glargine 10 units/ (Miscellaneous Medication) 0.1 mls @ 0 mls/hr SC BID [facility] Last Admin: 10/03/18 09:39 Dose: 0.1 mls Insulin Human Lispro (Humalog) 0 units SC .MILD SLIDING SCALE PRN PRN Reason: Mild Correctional Scale Last Admin: 10/03/18 05:36 Dose: 3 unit Insulin Human Lispro (Humalog) 0 units SC .BEDTIME SLIDING SC PRN PRN Reason: Bedtime Correctional Scale Last Admin: 10/02/18 21:13 Dose: 3 unit Labetalol HCl (Normodyne) 10 mg SLOW IVP Q4H PRN PRN Reason: SBP Greater Than 180 Latanoprost (Xalatan 0.005% Ophth Soln) 1 drop EA EYE [facility] Last Admin: 10/02/18 20:59 Dose: 1 drop Magnesium Oxide (Magnesium Oxide) 500 mg PO [facility] Last Admin: 10/02/18 21:02 Dose: 500 mg Metformin HCl (Glucophage) 1,000 mg PO BID-[facility] Last Admin: 10/03/18 15:40 Dose: 1,000 mg Ondansetron HCl (Zofran Odt) 4 mg PO Q6H PRN PRN Reason: Nausea/Vomiting Sodium Chloride (Flush - Normal Saline) 10 ml IVF Q12HR PRN PRN Reason: Saline Flush Last Admin: 10/01/18 20:37 Dose: 10 ml Sodium Chloride (Flush - Normal Saline) 10 ml IVF PRN PRN PRN Reason: Saline Flush
[2018-10-03] MEDS: Sodium Chloride 0.9% 1,000 ML IV SCH (18:16)
[2018-10-03] MEDS: Magnesium Oxide 250 MG TAB PO SCH (20:11)
[2018-10-03] MEDS: cefTRIAXone\\ROCEPHIN 2 GM in Sodium Chloride 0.9% 100 ML IVPB SCH (20:11)
[2018-10-03] MEDS: Latanoprost 0.005% Ophth Soln 2.5 ml Bottle EA EYE SCH (20:12)
[2018-10-03] MEDS: Atorvastatin Calcium 10 MG TAB PO SCH (20:12)
[2018-10-03 23:17] VITALS: BP 154/93
[2018-10-04 04:40] VITALS: BMI 42.9
[2018-10-04 04:55] LABS: #Eosinphils 0.1 thou/uL (0.0-0.7); #Lymphocytes 1.5 thou/uL (1.20-3.40); #Monocytes 0.6 thou/uL (0.11-0.59); #Neutrophils 3.4 thou/uL (1.40-6.50); %Basophils 0.2 % (0.0-1.0); %Eosinophils 1.2 % (0.0-10.0); %Lymphocytes 27.4 % (21.0-51.0); %Monocytes 10.2 % (0.0-10.0); %Neutrophils 60.9 % (42.0-75.0); Hemoglobin 12.7 g/dL (12.0-16.0); Mean Corpuscular HGB CONC 31.3 g/dL (32.0-36.0); Mean Corpuscular Hemoglobin 30.1 pg (27.0-31.0); Mean Corpuscular Volume 96.1 fL (78.0-98.0); Mean Platelet Volume 8.8 fL (7.4-10.4); Platelet Count 113 thou/uL (130-400); RBC Distribution Width 13.4 % (11.5-14.5); Red Blood Cell (RBC) Count 4.24 mill/uL (4.20-5.40); White Blood Cell (WBC) Count 5.6 thou/uL (4.8-10.8)
[2018-10-04 05:10] LABS: Anion Gap 13 mmol/L (10-20); BUN (Urea Nitrogen) 12 mg/dL (7.0-18.7); Calc. Creatinine Clearance 153 mL/min (70-130); Calcium 9.2 mg/dL (7.8-10.44); Carbon Dioxide 26 mmol/L (22-29); Chloride 103 mmol/L (98-107); Estimated GFR-MDRD Greater than 90; Glucose 263 mg/dL (70-105); Potassium 3.6 mmol/L (3.5-5.1); Sodium 138 mmol/L (136-145)
[2018-10-04] MEDS: HumaLOG 300 UNITS/3 ML VIAL SC PRN ×2 (06:07→11:42)
[2018-10-04] MEDS: Acetaminophen 325 MG TAB PO PRN (06:15)
[2018-10-04] MEDS: Carvedilol 25 MG TAB PO SCH (08:42)
[2018-10-04] MEDS: Enoxaparin Sodium 30 MG/0.3 ML SYRINGE SC SCH (08:42)
[2018-10-04] MEDS: Alogliptin 25 MG TAB PO SCH (08:42)
[2018-10-04] MEDS: metFORMIN 500 MG TAB PO SCH (08:42)
[2018-10-04] MEDS ORDERED: Cefdinir 300 MG CAP PO SCH (09:00)
[2018-10-04] MEDS: Insulin Glargine 10 UNITS in Pre-Filled Syringe 1 EACH SC SCH (09:04)
--- NOTE | 2018-10-04 09:13 | PRG ---
DATE OF SERVICE: 10/04/2018 SUBJECTIVE: Day number 3 in the hospital of UTI. Ureteral stone status post stent. She is better. She is still complaining of some sore throat, hoarseness, though I hear no stridor. OBJECTIVE: VITAL SIGNS: Saturations are 100% on room air, blood pressure is 133/84, pulse rate of 18, afebrile. CHEST: No wheezing or crackle. CARDIAC: Normal S1 and S2. No gallops. ABDOMEN: No masses. LABORATORY DATA: White count 25,000. Lytes are normal. IMAGING STUDIES: X-ray taken yesterday did not show any obvious acute infiltrates. ASSESSMENT: Hoarseness unknown etiology, urinary tract infection, ureteral stent, diabetes, glaucoma. PLAN: Switched over to oral antibiotics. Disposition as per Urology. Pulmonary will follow while in the MICU. Job ID: [id number] MTDD
[2018-10-04] MEDS ORDERED: Sacubitril 49 MG/Valsartan 51 MG TABLET PO SCH ×3 (12:00→21:00)
[2018-10-04 15:11] VITALS: TEMP 97
--- NOTE | 2018-10-05 05:11 | DIS ---
DATE OF ADMISSION: 10/01/2018 DATE OF DISCHARGE: 10/04/2018 DISCHARGE DISPOSITION: Home. PRIMARY CARE PHYSICIAN: Marbella France MD DISCHARGE DIAGNOSES: 1. Obstructive uropathy. 2. Right ureteral stone status post stenting to proximal ureter. 3. Pyelonephritis. 4. Sepsis due to Escherichia coli urinary tract infection. 5. Diabetes mellitus type 2. 6. Flash pulmonary edema, resolved. 7. Uncontrolled hypertension, resolved. 8. Dyslipidemia. 9. History of cardiomyopathy status post AICD placement in the past. 10. Hypertension. 11. Morbid obesity. 12. Acute hypoxic respiratory failure due to flash pulmonary edema, resolved. IN-HOUSE CONSULTATION: 1. Pulmonary Medicine. 2. Urology, Dr. York. PROCEDURES DONE IN THE HOSPITAL: 1. CT scan of the abdomen and pelvis, which showed obstructing right proximal ureteral calculus and diverticulosis of descending colon. Mild right hydronephrosis was also seen. 2. Retrograde pyelogram and right ureteral stent placement on 10/01/[address] Tejas York with cystoscopy as well. 3. Transthoracic echocardiogram which shows EF in 50% to 60% range and pacemaker wires in right atrial cavity, otherwise unremarkable. HISTORY OF PRESENTING ILLNESS: Ms. Helms is a 43-year-old female with past medical history of cardiomyopathy status post defibrillator, diabetes, and hypertension, who presented to the emergency room with complaints of back pain, dysuria, and urinary frequency. She has history of nephrolithiasis in the past as well as stent placement in the past for kidney stones. In the ER, she was noted to have a leukocytosis of 18,000, creatinine 1.20, and urinalysis suggestive of UTI. A CT scan of the abdomen and pelvis was done, which showed obstructing right ureteral calculus. She was given IV antibiotics and urology was consulted from the ER. She underwent a cystoscopy with right ureteral stent with retrograde pyelogram. After the procedure, internal medicine team was consulted for admission. Please see admission history and physical dictated by RUBENS Garza on 10/01/2018. HOSPITAL COURSE: Shortly after admission, the patient had uncontrolled hypertension and started to have respiratory distress. A code green was called and a chest x-ray was done. Her blood pressure was over 200 systolic with 100 diastolic. Chest x-ray showed mild pulmonary vascular congestion. Echo was ordered and she was moved to [facility] and was treated with transdermal nitroglycerin, Lasix. She gave history of AICD in the past, so echo was done, which showed improved cardiac function. After this one episode, she remained stable. She was seen in the [facility] by Pulmonary Critical Care Medicine as well. She was continued on IV antibiotic, which was later changed to oral antibiotic. The plan is for her to have laser lithotripsy at a later date about 1 week from today as per urologist. She is instructed not to take any aspirin or NSAIDs prior to procedures. Because of her improved cardiac function, she is taken off Aldactone as her blood pressure was on the lower side. Home dosages of Entresto will be resumed and she was continued on carvedilol in the hospital without any adverse effects. She was seen and examined prior to discharge. Her physical examination this morning, vital signs are stable. Temperature 97.2, saturating 100% on room air, blood pressure prior to discharge and after Entresto is 151/106. Chest is clear to auscultation without any wheezing, rales, or rhonchi. Rate rhythm is regular without any murmurs, rubs, or gallops. The discharge plan was discussed with the patient who verbalized understanding. She has an upcoming appointment with the bioprocess engineer, Dr. Rueda at [facility]. She will also follow up with primary care physician in 1 week and with Urology in 1 week. Total time spent in discharge, 32 minutes. Job ID: [id number]
== END 2018-10-04 16:28 | disposition home or self-care (01) | DRG 853 ==
LOC: ERS 17:42 → SDC 23:56 → OBSVTOIN 10-01 00:14 → SURG A 10-01 00:14 → IMCU/EMU 10-01 06:21
PROVIDERS: ADMIT Internal Medicine; ATTEND Internal Medicine
PROC: 0T768DZ Dilation of Right Ureter with Intraluminal Device, Via Natural or Artificial Opening Endoscopic (ICD-10-PCS; principal; 2018-10-01)
PROC: BT1D1ZZ Fluoroscopy of Right Kidney, Ureter and Bladder using Low Osmolar Contrast (ICD-10-PCS; 2018-10-01)
DX: A41.51 Sepsis due to Escherichia coli [E. coli] (principal); J96.01 Acute respiratory failure with hypoxia; N39.0 Urinary tract infection, site not specified; N20.1 Calculus of ureter; N12 Tubulo-interstitial nephritis, not specified as acute or chronic; Z68.41 Body mass index [BMI] 40.0-44.9, adult; E11.9 Type 2 diabetes mellitus without complications; N20.0 Calculus of kidney; I11.9 Hypertensive heart disease without heart failure; E66.01 Morbid (severe) obesity due to excess calories; G47.30 Sleep apnea, unspecified; N13.9 Obstructive and reflux uropathy, unspecified; H40.9 Unspecified glaucoma; Z90.49 Acquired absence of other specified parts of digestive tract; Z88.2 Allergy status to sulfonamides; Z79.899 Other long term (current) drug therapy; Z79.84 Long term (current) use of oral hypoglycemic drugs; Z95.810 Presence of automatic (implantable) cardiac defibrillator
CPT/HCPCS: 36415; 36416; 71045; 74176; 74420; 80048; 80053; 80202; 81003; 81015; 81025; 82010; 82550; 83605; 83735; 83880; 84100; 84484; 85025; 85379; 87077; 87081; 87086; 87186; 87430; 93005; 93010; 93306; 94640; C1758; C1769; J0696; J1650; J1815; J1825; J1885; J1940; J2001; J2405; J2704; J3010; J3370; J3490; J7050; J7620; Q9961

== ENCOUNTER → 2018-10-11 | Day surgery (SDC) | payer BC ==
[2018-10-10 11:49] VITALS: BMI 43.2
[~2018-10-11] MED LIST changes: +Famotidine/PF 20 mg/2ml Vial ONE; +Fentanyl 100 MCG/2 ML VIAL ONE; -Glycopyrrolate 0.2 MG/ML 5 ML SYRINGE ONE; -Rocuronium Bromide 10 MG/ML (10ML VIAL) ONE; +Sodium Chloride 0.9% 100 ML ONE; -Succinylcholine Chloride 20 MG/ML 10 ml SYRINGE FS ONE; +cefTRIAXone\\ROCEPHIN 2 GM VIAL ONE; +ePHEDrine 50 MG/ML VIAL ONE
[2018-10-11 07:06] LABS: Platelet Count 248 thou/uL (130-400)
[2018-10-11 07:20] LABS: EPI 97 SEC (67-199)
--- NOTE | 2018-10-11 15:33 | OP ---
DATE OF PROCEDURE: 10/11/2018 PREOPERATIVE DIAGNOSIS: Right ureteral stone. POSTOP DIAGNOSIS: Right ureteral stone. PROCEDURE PERFORMED: Right extracorporeal shock wave lithotripsy. ANESTHESIA: General. ESTIMATED BLOOD LOSS: Not recorded. FINDINGS: A 7 to 8 mm right proximal ureteral stone treated with 2500 shocks at maximum kv level of 5. It did appear to fragment well. Did not spread out very well and because she already had a stent in and as she presented septic with this 10 days ago or so, we elected not to remove the stent until we see that the stone is actually broken up and passed. DESCRIPTION OF PROCEDURE: Obtained written and verbal consent from the patient after receiving IV antibiotics and being sure platelet function assay was normal. She was taken to the operating suite. She was placed in a supine position on the treatment table. PlexiPulse was placed on her lower extremities and turned on. She was given a general anesthetic and oral intubation. A magnet was placed over her defibrillator. She was then coupled on the lithotripsy unit and the stone was placed in treatment focal point. Shockwave therapy was commenced. After couple 100 shocks, a 5-minute pause was given. We then slowly went up from a low level to level 4 and then level 5. A 2500 shocks were given. Fluoroscopy was used intermittently to document stone fragmentation and to reposition as necessary. At the end of the procedure, she was awakened and extubated, and taken by a stretcher to recovery room. Job ID: [id number]
== END ==
LOC: SDC 06:05
PROVIDERS: ATTEND Urology
PROC: 0TF6XZZ Fragmentation in Right Ureter, External Approach (ICD-10-PCS; principal; 2018-10-11)
DX: N20.1 Calculus of ureter (principal); I10 Essential (primary) hypertension; E11.9 Type 2 diabetes mellitus without complications; Z88.2 Allergy status to sulfonamides
CPT/HCPCS: 36415; 85576; J0131; J0696; J2001; J2405; J2704; J3010; J3490; S0028

== ENCOUNTER 2018-10-16 09:22 | Outpatient (CLI) | payer BC ==
--- NOTE | 2018-10-16 10:38 | RAD ---
RIGHT FOOT 3 VIEWS: Date: 10/16/18 HISTORY: Right foot pain following an injury 1 month ago. FINDINGS: Very small, punctate metal foreign body in the soft tissues of the great toe medial to the distal pha lanx. No fracture, dislocation, or other significant acute osseous abnormality. IMPRESSION: Small metal foreign body in the great toe. Small calcaneal plantar enthesophyte. POS: TPC
== END 2018-10-16 09:23 | disposition home or self-care (01) ==
LOC: BICRAD 09:22
PROVIDERS: ATTEND Internal Medicine
DX: M79.671 Pain in right foot (principal); S90.451A Superficial foreign body, right great toe, initial encounter
CPT/HCPCS: 36415; 80048; 83036; 85025

== ENCOUNTER 2018-10-27 09:11 | Outpatient (CLI) | payer BC ==
--- NOTE | 2018-10-27 10:21 | MMO ---
Left Breast MAMMO Unilat Diag DDI LT+JOEL. CLINICAL HISTORY: Patient is 43 years old and is seen for diagnostic exam and pain in the left breast. The patient has no family history of breast cancer. The patient has no personal history of cancer. The patient has a history of right Excisional Biopsy in 2011 - benign. VIEWS: The views performed were: left craniocaudal with tomosynthesis; left mediolateral oblique; left mediolateral oblique with tomosynthesis; and left mediolateral. FILMS COMPARED: The present examination has been compared to prior imaging studies performed at [facility] on 02/28/2018 and 10/27/2018. MAMMOGRAM FINDINGS: There are scattered fibroglandular densities. There are no suspicious masses, suspicious calcifications, or new areas of architectural distortion. There are no mammographic or sonographic abnormalities to explain the patient's breast pain. The patient is referred back to her clinician. Negative imaging findings should not preclude biopsy if clinical findings are suspicious. IMPRESSION: THERE IS NO MAMMOGRAPHIC EVIDENCE OF MALIGNANCY. THE RESULTS OF THIS EXAM WERE SENT TO THE PATIENT. ACR BI-RADS Category 1 - Negative MAMMOGRAPHY NOTE: 1. A negative mammogram report should not delay a biopsy if a dominant of clinically suspicious mass is present. 2. Approximately 10% to 15% of breast cancers are not detected by mammography. 3. Adenosis and dense breasts may obscure an underlying neoplasm.
--- NOTE | 2018-10-27 11:43 | ULT ---
LIMITED LEFT BREAST ULTRASOUND: Date: 10/27/18 PROVIDED CLINICAL HISTORY: Left breast pain. FINDINGS: Limited sonographic interrogation was performed of the left breast in the region of patient pain. The sonographic appearance of the breast parenchyma in this region is normal. IMPRESSION: BIRADS Category 1 - Negative. Negative imaging findings should not preclude further evaluation of a c linically suspicious finding. The patient is referred back to her clinician. POS: OFF
== END 2018-10-27 09:12 | disposition home or self-care (01) ==
LOC: BICMAMMO 09:11
PROVIDERS: ATTEND Physician Assistant
DX: N64.4 Mastodynia (principal)
CPT/HCPCS: G0279

== ENCOUNTER 2019-11-07 07:39 | Outpatient (CLI) | payer BC, OTHER ==
--- NOTE | 2019-11-07 09:14 | CT ---
ABDOMEN AND PELVIC CT SCAN WITH AND WITHOUT IV CONTRAST: HISTORY: Calculus of kidney, left flank pain. FINDINGS: Lung bases are clear. Minimally enlarged fatty liver. Status post cholecystectomy. Pancreas, splee n, and adrenal glands are unremarkable. Small bilateral renal hypodensities, too small to definitive ly characterize, but a statistically small cyst. Nonobstructing left lower pole renal calculus. No evidence for acute obstruction. Normal-appearing appendix. No evidence for large or small bowel obstruction. Minimal colonic diverticulosis without acute diverticulitis. Unremarkable uterus and a dnexal regions. IMPRESSION: Nonobstructing left lower pole renal calculus. No evidence for acute obstruction. Enlarged fatty liver. Other findings as above. POS: AH
[2019-11-07] MEDS ORDERED: Iopamidol 370 76% 100 ML VIAL ONE (14:11)
== END 2019-11-07 07:40 | disposition home or self-care (01) ==
LOC: CT 07:39
PROVIDERS: ATTEND Internal Medicine
DX: N20.0 Calculus of kidney (principal); K76.0 Fatty (change of) liver, not elsewhere classified; K57.30 Diverticulosis of large intestine without perforation or abscess without bleeding; N28.1 Cyst of kidney, acquired; Z90.49 Acquired absence of other specified parts of digestive tract
CPT/HCPCS: 74178; Q9967

== ENCOUNTER 2019-11-07 08:48 | Outpatient (CLI) | payer BC ==
--- NOTE | 2019-11-07 09:40 | MMO ---
Bilateral MAMMO Bilat Screen DDI+JOEL. CLINICAL HISTORY: Patient is 44 years old and is seen for screening. The patient has no family history of breast cancer. The patient has no personal history of cancer. The patient has a history of right Excisional Biopsy in 2011 - benign. VIEWS: The views performed were: bilateral craniocaudal; bilateral craniocaudal with tomosynthesis; bilateral mediolateral oblique; and bilateral mediolateral oblique with tomosynthesis. FILMS COMPARED: The present examination has been compared to prior imaging studies performed at [facility] on 02/28/2018 and 10/27/2018. This study has been interpreted with the assistance of computer-aided detection. MAMMOGRAM FINDINGS: There are scattered fibroglandular densities. There are no suspicious masses, suspicious calcifications, or new areas of architectural distortion. IMPRESSION: THERE IS NO MAMMOGRAPHIC EVIDENCE OF MALIGNANCY. A ROUTINE FOLLOW-UP MAMMOGRAM IN 1 YEAR IS RECOMMENDED. THE RESULTS OF THIS EXAM WERE SENT TO THE PATIENT. ACR BI-RADS Category 1 - Negative MAMMOGRAPHY NOTE: 1. A negative mammogram report should not delay a biopsy if a dominant of clinically suspicious mass is present. 2. Approximately 10% to 15% of breast cancers are not detected by mammography. 3. Adenosis and dense breasts may obscure an underlying neoplasm. Reported by: ZEE DIEHL MD Electonically Signed: [id number]
== END 2019-11-07 08:49 | disposition home or self-care (01) ==
LOC: BICMAMMO 08:48
PROVIDERS: ATTEND Internal Medicine
DX: Z12.31 Encounter for screening mammogram for malignant neoplasm of breast (principal); Z91.89 Other specified personal risk factors, not elsewhere classified
CPT/HCPCS: 77063; 77067

== ENCOUNTER 2020-11-17 07:59 | Emergency (ER) | payer OTHER, BC ==
[2020-11-17] MEDS ORDERED: Ketorolac Tromethamine 30 MG/ML VIAL ONE (08:36)
[2020-11-17] MEDS ORDERED: Ondansetron PF 4 MG/2 ML Vial ONE (09:57)
[2020-11-17 10:00] LABS: #Basophils 0.1 thou/uL (0.0-0.2); #Eosinphils 0.1 thou/uL (0.0-0.7); #Lymphocytes 2.2 thou/uL (1.20-3.40); #Monocytes 0.7 thou/uL (0.11-0.59); #Neutrophils 7.5 thou/uL (1.40-6.50); %Basophils 0.7 % (0.0-1.0); %Eosinophils 0.8 % (0.0-10.0); %Lymphocytes 20.8 % (21.0-51.0); %Monocytes 6.7 % (0.0-10.0); Hemoglobin 14.6 g/dL (12.0-16.0); Mean Corpuscular HGB CONC 32.3 g/dL (32.0-36.0); Mean Corpuscular Hemoglobin 28.8 pg (27.0-31.0); Mean Platelet Volume 8.4 fL (7.4-10.4); Platelet Count 176 thou/uL (130-400); RBC Distribution Width 15.8 % (11.5-14.5); Red Blood Cell (RBC) Count 5.07 mill/uL (4.20-5.40); White Blood Cell (WBC) Count 10.6 thou/uL (4.8-10.8)
[2020-11-17 10:22] LABS: ALT (SGPT) 23 U/L (8-55); AST (SGOT) 19 U/L (5-34); Albumin 3.3 g/dL (3.5-5.0); Alkaline Phosphatase 92 U/L (40-110); Anion Gap 15 mmol/L (10-20); BUN (Urea Nitrogen) 10 mg/dL (7.0-18.7); Bilirubin, Total 0.3 mg/dL (0.2-1.2); Calc. Creatinine Clearance 0 mL/min (70-130); Calcium 9.1 mg/dL (7.8-10.44); Carbon Dioxide 21 mmol/L (22-29); Chloride 107 mmol/L (98-107); Globulin 3.3 g/dL (2.4-3.5); Glucose 178 mg/dL (70-105); Lipase 22 U/L (8-78); Potassium 3.6 mmol/L (3.5-5.1); Protein, Total 6.6 g/dL (6.0-8.3); Sodium 139 mmol/L (136-145)
[2020-11-17] MEDS ORDERED: Morphine 2 MG/ML VIAL ONE (11:26)
== END 2020-11-17 11:55 | disposition home or self-care (01) ==
LOC: ERS 07:59
DX: S20.212A Contusion of left front wall of thorax, initial encounter (principal); E11.9 Type 2 diabetes mellitus without complications; I10 Essential (primary) hypertension; Z87.891 Personal history of nicotine dependence; Z79.84 Long term (current) use of oral hypoglycemic drugs; Z79.899 Other long term (current) drug therapy; V87.8XXA Person injured in other specified noncollision transport accidents involving motor vehicle (traffic), initial encounter
CPT/HCPCS: 36415; 71045; 76705; 80053; 83690; 85025; 96372; 96374; J1885; J2270; J2405

== ENCOUNTER 2020-11-18 11:59 | Outpatient (CLI) | payer BC | END 2020-11-18 12:00 | disposition home or self-care (01) | LOC: BICRAD 11:59 | PROVIDERS: ATTEND Nurse Practitioner Family | DX: R07.81 Pleurodynia (principal) ==

== ENCOUNTER 2021-02-20 07:23 | Outpatient (CLI) | payer BC | END 2021-02-20 07:24 | disposition home or self-care (01) | LOC: BICULT 07:23 | PROVIDERS: ATTEND Internal Medicine | DX: R10.2 Pelvic and perineal pain (principal); R93.89 Abnormal findings on diagnostic imaging of other specified body structures; N85.8 Other specified noninflammatory disorders of uterus | CPT/HCPCS: 76856 ==

== ENCOUNTER 2021-09-28 11:27 | Outpatient (CLI) | payer BC ==
[2021-09-29 00:08] LABS: SARS-CoV-2 PCR by NAA Not Detected (NotDetected)
== END 2021-09-28 11:28 | disposition home or self-care (01) ==
LOC: LABBT 11:27
PROVIDERS: ATTEND Surgery
DX: Z20.822 Contact with and (suspected) exposure to COVID-19 (principal)
CPT/HCPCS: U0003; U0005

== ENCOUNTER 2021-10-02 10:16 | Outpatient (CLI) | payer BC | END 2021-10-02 10:17 | disposition home or self-care (01) | LOC: RAD 10:16 | PROVIDERS: ATTEND Surgery | DX: K21.9 Gastro-esophageal reflux disease without esophagitis (principal) | CPT/HCPCS: 74220 ==

== ENCOUNTER 2021-10-09 09:03 | Outpatient (CLI) | payer BC | END 2021-10-09 09:04 | disposition home or self-care (01) | LOC: DTY/OP 09:03 | PROVIDERS: ATTEND Surgery | DX: E66.01 Morbid (severe) obesity due to excess calories (principal) | CPT/HCPCS: 97802 ==

== ENCOUNTER 2021-12-30 18:52 | Emergency (ER) | payer BC ==
[2021-12-30 19:36] LABS: #Eosinphils 0.1 thou/uL (0.0-0.7); #Lymphocytes 2.9 thou/uL (1.20-3.40); #Neutrophils 13.2 thou/uL (1.40-6.50); %Basophils 0.3 % (0.0-1.0); %Eosinophils 0.3 % (0.0-10.0); %Lymphocytes 16.6 % (21.0-51.0); %Monocytes 5.9 % (0.0-10.0); %Neutrophils 76.9 % (42.0-75.0); Hemoglobin 15.7 g/dL (12.0-16.0); Mean Corpuscular HGB CONC 31.4 g/dL (32.0-36.0); Mean Corpuscular Hemoglobin 28.2 pg (27.0-31.0); Mean Corpuscular Volume 89.8 fL (78.0-98.0); Mean Platelet Volume 9.1 fL (7.4-10.4); Platelet Count 188 thou/uL (130-400); RBC Distribution Width 16.4 % (11.5-14.5); Red Blood Cell (RBC) Count 5.57 mill/uL (4.20-5.40); White Blood Cell (WBC) Count 17.1 thou/uL (4.8-10.8)
[2021-12-30 19:58] LABS: ALT (SGPT) 20 U/L (8-55); AST (SGOT) 19 U/L (5-34); Albumin 3.7 g/dL (3.5-5.0); Alkaline Phosphatase 108 U/L (40-110); Anion Gap 16 mmol/L (10-20); BUN (Urea Nitrogen) 28 mg/dL (7.0-18.7); Bilirubin, Total 0.4 mg/dL (0.2-1.2); Calc. Creatinine Clearance 0 mL/min (70-130); Calcium 9.9 mg/dL (7.8-10.44); Carbon Dioxide 23 mmol/L (22-29); Chloride 104 mmol/L (98-107); Estimated GFR 57; Globulin 3.5 g/dL (2.4-3.5); Glucose 130 mg/dL (70-105); Potassium 4.5 mmol/L (3.5-5.1); Protein, Total 7.2 g/dL (6.0-8.3); Sodium 138 mmol/L (136-145)
[2021-12-30 22:25] LABS: Bacteria/HPF None Seen HPF (None Seen); Bilirubin Negative (Negative); Blood, Urine Trace (Negative); Clarity Clear (Clear); Glucose, Urine (Dipstick) Greater than 1000 mg/dL (Negative); Ketone, Urine 20 mg/dL (Negative); Leukocyte Negative Leu/uL (Negative); Nitrite Negative (Negative); Protein, Urine (Dipstick) Negative (Neg-Trace); RBC/HPF 0-3 HPF (0-3); Specific Gravity, Urine 1.032 (1.002-1.036); Squamous Epithelial 0-3 HPF (0-3); Urobilinogen Normal mg/dL (Less than 2); WBC/HPF 0-3 HPF (0-3)
== END 2021-12-30 23:16 | disposition home or self-care (01) ==
LOC: ERS 18:52
DX: R19.5 Other fecal abnormalities (principal); E11.9 Type 2 diabetes mellitus without complications; I10 Essential (primary) hypertension; Z87.891 Personal history of nicotine dependence; Z79.899 Other long term (current) drug therapy; Z79.84 Long term (current) use of oral hypoglycemic drugs
CPT/HCPCS: 36415; 80053; 81003; 81015; 85025; 86850; 86900; 86901; 99283

== ENCOUNTER 2022-01-04 07:00 | Inpatient (IN) | payer BC ==
[2022-01-12] MEDS ORDERED: Bupivacaine/Epinephrine 0.25% 30 ML VIAL ONE (12:47)
[2022-01-12] MEDS ORDERED: fentaNYL Citrate/PF 100 MCG/2 ML SYRINGE ONE (12:54)
[2022-01-12] MEDS ORDERED: Ketamine 50 MG/ML (10ML VIAL) ONE (12:54)
[2022-01-12] MEDS ORDERED: CEFAZOLIN 2 GM VIAL ONE (13:02)
[2022-01-12] MEDS ORDERED: Sodium Chloride 0.9% 100 ML ONE (13:02)
[2022-01-12] MEDS ORDERED: Neostigmine Methylsulfate 3 MG/3 ML SYRINGE ONE (13:19)
[2022-01-12] MEDS ORDERED: Dexamethasone 20 MG/5 ML VIAL ONE (13:19)
[2022-01-12] MEDS ORDERED: PROPOFOL 200 MG/20 ML VIAL ONE (13:19)
[2022-01-12] MEDS ORDERED: Lidocaine 1% PF 5 ML VIAL ONE (13:19)
[2022-01-12] MEDS ORDERED: Ondansetron PF 4 MG/2 ML Vial ONE (13:19)
[2022-01-12] MEDS ORDERED: Rocuronium Bromide 10 MG/ML (10ML VIAL) ONE (13:19)
[2022-01-12] MEDS ORDERED: Glycopyrrolate 0.2 MG/ML 5 ML SYRINGE ONE (13:19)
[2022-01-12] MEDS ORDERED: ePHEDrine 50 MG/ML VIAL ONE (13:19)
[2022-01-12] MEDS ORDERED: Promethazine HCl 25 MG/ML VIAL IM PRN ×3 (13:51→15:35)
[2022-01-12] MEDS ORDERED: Ondansetron HCl/PF 4 MG/2 ML Vial IVP PRN (13:51)
[2022-01-12] MEDS ORDERED: Promethazine HCl 25 MG/ML VIAL IVPB PRN (13:51)
[2022-01-12] MEDS ORDERED: SUGAMMADEX SODIUM 200 MG/2 ML VIAL ONE (15:00)
[2022-01-12] MEDS ORDERED: Dextrose 5% in Water 1,000 ML IV PRN (15:12)
[2022-01-12] MEDS ORDERED: hydrALAZINE 20 MG/ML VIAL SLOW IVP PRN (15:12)
[2022-01-12] MEDS ORDERED: HumaLOG 300 UNITS/3 ML VIAL SC PRN (15:12)
[2022-01-12] MEDS ORDERED: Ondansetron PF 4 MG/2 ML Vial IVP PRN ×2 (15:12→15:35)
[2022-01-12] MEDS ORDERED: Hydrocodone-Acetamin 15 ML UDCUP PO PRN (15:12)
[2022-01-12] MEDS ORDERED: diphenhydrAMINE 50 MG/ML VIAL IVP PRN ×2 (15:12→15:35)
[2022-01-12] MEDS ORDERED: Dextrose 50% Abboject 50 ML SYRINGE SLOW IVP PRN (15:12)
[2022-01-12] MEDS ORDERED: Fentanyl 100 MCG/2 ML VIAL ONE ×2 (15:24→15:50)
[2022-01-12] MEDS ORDERED: diphenhydrAMINE 25 MG CAP PO PRN (15:35)
[2022-01-12] MEDS ORDERED: diphenhydrAMINE 50 MG/ML VIAL IM PRN (15:35)
[2022-01-12] MEDS ORDERED: Naloxone HCl 0.4 mg/ml Vial IV PRN (15:35)
[2022-01-12] MEDS ORDERED: fentaNYL Citrate/PF 2,000 MCG in Sodium Chloride 0.9% 60 ML IV PRN (15:35)
[2022-01-12] MEDS ORDERED: Zolpidem Tartrate 5 MG TAB PO PRN (15:35)
[2022-01-12] MEDS ORDERED: Communication Order-Pharmacy FS SCH (15:45)
[2022-01-12] MEDS: Sodium Chloride 0.9% 1,000 ML IV SCH (16:49)
[2022-01-12] MEDS ORDERED: hydrALAZINE 20 MG/ML VIAL ONE (17:02)
[2022-01-12 23:19] VITALS: BMI 44.1
[2022-01-13] MEDS: Sodium Chloride 0.9% 1,000 ML IV SCH ×2 (03:05→09:00)
[2022-01-13] MEDS: Hydrocodone-Acetamin 15 ML UDCUP PO PRN ×2 (06:16→14:24)
[2022-01-13 06:27] LABS: #Lymphocytes 2.1 thou/uL (1.20-3.40); #Neutrophils 10.1 thou/uL (1.40-6.50); %Basophils 0.1 % (0.0-1.0); %Eosinophils 0.2 % (0.0-10.0); %Lymphocytes 15.9 % (21.0-51.0); %Monocytes 7.5 % (0.0-10.0); %Neutrophils 76.4 % (42.0-75.0); Hemoglobin 13.9 g/dL (12.0-16.0); Mean Corpuscular HGB CONC 31.1 g/dL (32.0-36.0); Mean Corpuscular Hemoglobin 28.3 pg (27.0-31.0); Mean Corpuscular Volume 91.2 fL (78.0-98.0); Mean Platelet Volume 8.8 fL (7.4-10.4); Platelet Count 132 thou/uL (130-400); RBC Distribution Width 16.2 % (11.5-14.5); Red Blood Cell (RBC) Count 4.91 mill/uL (4.20-5.40); White Blood Cell (WBC) Count 13.2 thou/uL (4.8-10.8)
[2022-01-13 06:44] LABS: Anion Gap 15 mmol/L (10-20); BUN (Urea Nitrogen) 12 mg/dL (7.0-18.7); Calc. Creatinine Clearance 172 mL/min (70-130); Calcium 8.8 mg/dL (7.8-10.44); Carbon Dioxide 22 mmol/L (22-29); Chloride 106 mmol/L (98-107); Estimated GFR 113; Glucose 112 mg/dL (70-105); Potassium 4.5 mmol/L (3.5-5.1); Sodium 138 mmol/L (136-145)
[2022-01-13] MEDS ORDERED: Pantoprazole 40 MG VIAL IVP SCH (09:00)
[2022-01-13] MEDS ORDERED: Enoxaparin Sodium 40 MG/0.4 ML SYRINGE SC SCH (09:00)
[2022-01-13 12:12] VITALS: BP 145/85; TEMP 98
== END 2022-01-13 15:05 | disposition home or self-care (01) | DRG 620 ==
LOC: T4-A 01-12 10:24 → SURG B 01-12 19:42
PROVIDERS: ADMIT Surgery; ATTEND Surgery
PROC: 0DB64Z3 Excision of Stomach, Percutaneous Endoscopic Approach, Vertical (ICD-10-PCS; principal; 2022-01-12)
DX: E66.01 Morbid (severe) obesity due to excess calories (principal); I50.42 Chronic combined systolic (congestive) and diastolic (congestive) heart failure; E11.9 Type 2 diabetes mellitus without complications; K44.9 Diaphragmatic hernia without obstruction or gangrene; D17.5 Benign lipomatous neoplasm of intra-abdominal organs; Z20.822 Contact with and (suspected) exposure to COVID-19; K76.0 Fatty (change of) liver, not elsewhere classified; I11.0 Hypertensive heart disease with heart failure; Z68.41 Body mass index [BMI] 40.0-44.9, adult; Z95.810 Presence of automatic (implantable) cardiac defibrillator; Z98.51 Tubal ligation status; Z90.49 Acquired absence of other specified parts of digestive tract; Z87.440 Personal history of urinary (tract) infections; Z87.442 Personal history of urinary calculi; Z82.49 Family history of ischemic heart disease and other diseases of the circulatory system; Z82.3 Family history of stroke; Z83.3 Family history of diabetes mellitus; Z79.899 Other long term (current) drug therapy; Z88.1 Allergy status to other antibiotic agents; Z90.89 Acquired absence of other organs
CPT/HCPCS: 36415; 36416; 80048; 85025; 87811; 88307; C9113; J0360; J0690; J1100; J1650; J2405; J2704; J3010; J3490; J7050

== ENCOUNTER 2022-01-04 07:10 | Outpatient (CLI) | payer BC ==
[2022-01-04 08:00] LABS: #Basophils 0.1 10x3/uL (0.0-0.2); #Eosinphils 0.1 10x3/uL (0.0-0.5); #Neutrophils 7.7 10x3/uL (1.5-8.4); %Basophils 0.5 % (0.0-2.0); %Eosinophils 1.1 % (0.0-6.0); %Lymphocytes 26.7 % (18.0-47.0); %Monocytes 8.2 % (0.0-10.0); %Neutrophils 62.7 % (40.0-75.0); Hemoglobin 15.1 g/dL (12.0-15.5); Mean Corpuscular HGB CONC 32.1 g/dL (32.0-36.0); Mean Corpuscular Hemoglobin 27.6 pg (27.0-33.0); Mean Corpuscular Volume 85.8 fl (81.6-98.3); Mean Platelet Volume 10.6 fl (7.4-10.4); Platelet Count 194 10x3/uL (150-450); RBC Distribution Width 16.9 % (11.5-14.5); Red Blood Cell (RBC) Count 5.48 10x6/uL (3.90-5.03); White Blood Cell (WBC) Count 12.3 10x3/uL (3.5-10.5)
[2022-01-04 08:14] LABS: ALT (SGPT) 27 U/L (8-55); AST (SGOT) 20 U/L (5-34); Albumin 3.7 g/dL (3.5-5.0); Alkaline Phosphatase 101 U/L (40-110); Anion Gap 13 mmol/L (10-20); BUN (Urea Nitrogen) 19 mg/dL (7.0-18.7); Bilirubin, Total 0.3 mg/dL (0.2-1.2); Calc. Creatinine Clearance 0 mL/min (70-130); Calcium 9.4 mg/dL (7.8-10.44); Carbon Dioxide 27 mmol/L (22-29); Chloride 107 mmol/L (98-107); Estimated GFR 110; Globulin 2.8 g/dL (2.4-3.5); Glucose 79 mg/dL (70-105); Protein, Total 6.5 g/dL (6.0-8.3); Sodium 143 mmol/L (136-145)
[2022-01-04 08:32] LABS: BHCG - Serum Negative (NEGATIVE); Pregs Control Background? CLEAR/WHITE (CLR/WHITE); Pregs Control Bar Appear? YES (CONTROL BAR)
[2022-01-04 12:42] LABS: Hemoglobin A1c 8.4 % (4.0-6.0)
== END 2022-01-04 07:11 | disposition home or self-care (01) ==
LOC: LABBT 07:10
PROVIDERS: ATTEND Surgery
DX: Z01.818 Encounter for other preprocedural examination (principal); E66.01 Morbid (severe) obesity due to excess calories; Z20.822 Contact with and (suspected) exposure to COVID-19
CPT/HCPCS: 71046; 80053; 83036; 84703; 85025; 87811; 93005; 93010

== ENCOUNTER 2022-01-11 10:15 | Outpatient (CLI) | payer BC | END 2022-01-11 10:16 | disposition home or self-care (01) | LOC: LABBT 10:15 | PROVIDERS: ATTEND Surgery | DX: Z20.822 Contact with and (suspected) exposure to COVID-19 (principal) | CPT/HCPCS: 87811 ==

== ENCOUNTER 2022-06-03 07:03 | Day surgery (SDC) | payer BC ==
[2022-06-02 10:53] VITALS: BMI 38.0
[2022-06-03] MEDS ORDERED: PROPOFOL 200 MG/20 ML VIAL ONE (09:10)
== END 2022-06-03 10:00 | disposition home or self-care (01) ==
LOC: SDC 07:03
PROVIDERS: ATTEND Internal Medicine Gastroenterology
PROC: 0DBM8ZX Excision of Descending Colon, Via Natural or Artificial Opening Endoscopic, Diagnostic (ICD-10-PCS; principal; 2022-06-03)
PROC: 0DBK8ZX Excision of Ascending Colon, Via Natural or Artificial Opening Endoscopic, Diagnostic (ICD-10-PCS; principal; 2022-06-03)
PROC: 0DBL8ZX Excision of Transverse Colon, Via Natural or Artificial Opening Endoscopic, Diagnostic (ICD-10-PCS; principal; 2022-06-03)
DX: D12.2 Benign neoplasm of ascending colon (principal); D12.3 Benign neoplasm of transverse colon; D12.5 Benign neoplasm of sigmoid colon; E11.9 Type 2 diabetes mellitus without complications; Z79.84 Long term (current) use of oral hypoglycemic drugs; Z79.899 Other long term (current) drug therapy; Z88.2 Allergy status to sulfonamides
CPT/HCPCS: 88305; J2704

== ENCOUNTER 2023-05-29 10:17 | Emergency (ER) | payer BC ==
[2023-05-29 11:20] LABS: SARS-CoV-2 NAA Rapid Test Not Detected (NotDetected)
[2023-05-29 11:40] LABS: Bacteria/HPF None Seen HPF (None Seen); Bilirubin Negative (Negative); Blood, Urine Negative (Negative); CAUTI Indications for Culture Dysuria,urgency,freq; Clarity Clear (Clear); Glucose, Urine (Dipstick) Greater than 1000 mg/dL (Negative); Ketone, Urine 40 mg/dL (Negative); Leukocyte Negative Leu/uL (Negative); Nitrite Negative (Negative); Protein, Urine (Dipstick) 20 mg/dL (Neg-Trace); RBC/HPF 0-3 HPF (0-3); Specific Gravity, Urine 1.037 (1.002-1.036); Urobilinogen Normal mg/dL (Less than 2); pH, Urine 6.5 (5.0-9.0)
[2023-05-29 11:43] LABS: Urine Culture Reflex No No
[2023-05-29] MEDS ORDERED: Ibuprofen 200 MG TAB ONE (11:53)
== END 2023-05-29 11:55 | disposition home or self-care (01) ==
LOC: ERS 10:17
DX: J10.1 Influenza due to other identified influenza virus with other respiratory manifestations (principal); E11.9 Type 2 diabetes mellitus without complications; I10 Essential (primary) hypertension; Z79.84 Long term (current) use of oral hypoglycemic drugs; Z87.891 Personal history of nicotine dependence
CPT/HCPCS: 36416; 71045; 81001

== ENCOUNTER 2023-10-07 08:55 | Outpatient (CLI) | payer BC ==
[2023-10-07] MEDS ORDERED: Iopamidol 370 76% 100 ML VIAL ONE (11:56)
== END 2023-10-07 08:56 | disposition home or self-care (01) ==
LOC: CT 08:55
PROVIDERS: ATTEND Internal Medicine
DX: N28.89 Other specified disorders of kidney and ureter (principal)
CPT/HCPCS: 74178; Q9967

== ENCOUNTER 2024-02-24 08:24 | Outpatient (CLI) | payer BC ==
[2024-02-24] MEDS ORDERED: Iopamidol 370 76% 100 ML VIAL ONE (13:56)
== END 2024-02-24 08:25 | disposition home or self-care (01) ==
LOC: BICCT 08:24
PROVIDERS: ATTEND Internal Medicine
DX: K46.9 Unspecified abdominal hernia without obstruction or gangrene (principal); Z90.5 Acquired absence of kidney
CPT/HCPCS: 36415; 74177; 82565; Q9967

== ENCOUNTER 2024-03-14 01:08 | Emergency (ER) | payer BC ==
[2024-03-14] MEDS ORDERED: Phenazopyridine HCl 100 MG TAB ONE ×2 (03:26→03:32)
[2024-03-14] MEDS ORDERED: Ketorolac Tromethamine 30 MG (1 mL) VIAL ONE (03:26)
[2024-03-14 06:40] LABS: Bacteria/HPF None Seen HPF (None Seen); Bilirubin Negative (Negative); Blood, Urine Negative (Negative); CAUTI Indications for Culture Dysuria,urgency,freq; Clarity Clear (Clear); Glucose, Urine (Dipstick) Greater than 1000 mg/dL (Negative); Ketone, Urine Negative (Negative); Leukocyte 250 Leu/uL (Negative); Nitrite Negative (Negative); Protein, Urine (Dipstick) Negative (Neg-Trace); Specific Gravity, Urine 1.029 (1.002-1.036); Squamous Epithelial 0-3 HPF (0-3); Urobilinogen Normal mg/dL (Less than 2)
[2024-03-14 06:42] LABS: Urine Culture Reflex No No
== END 2024-03-14 05:46 | disposition home or self-care (01) ==
LOC: ERS 01:08
DX: N39.0 Urinary tract infection, site not specified (principal); E11.65 Type 2 diabetes mellitus with hyperglycemia; I10 Essential (primary) hypertension; Z79.84 Long term (current) use of oral hypoglycemic drugs; Z79.85 Long-term (current) use of injectable non-insulin antidiabetic drugs; Z79.899 Other long term (current) drug therapy
CPT/HCPCS: 36416; 81001; 87077; 87086; 87480; 87510; 87660; 96372; J1885

== ENCOUNTER 2024-06-28 08:53 | Outpatient (CLI) | payer BC | END 2024-06-28 08:54 | disposition home or self-care (01) | LOC: BICMAMMO 08:53 | PROVIDERS: ATTEND Internal Medicine | DX: Z12.31 Encounter for screening mammogram for malignant neoplasm of breast (principal); Z91.89 Other specified personal risk factors, not elsewhere classified | CPT/HCPCS: 77063; 77067 ==